=== PATIENT | female | born 1940 | race Caucasian/White ===

== ENCOUNTER 2017-12-22 07:54 | Day surgery (SDC) | payer MEDICARE, BC ==
[2017-12-22] MEDS ORDERED: fentaNYL 100 MCG/2 ML SDV ONE (08:24)
[2017-12-22] MEDS ORDERED: Midazolam 1 MG/ML 2 ML SDV ONE (08:24)
[2017-12-22] MEDS ORDERED: Propofol 200 MG/20 ML SDV ONE ×2 (08:24→09:46)
[2017-12-22] MEDS ORDERED: Lactated Ringers 1,000 ML IV SCH (08:30)
--- NOTE | 2017-12-25 07:38 | OR ---
DATE OF PROCEDURE: 12/22/2017 PREOPERATIVE DIAGNOSIS: History of colon polyps. POSTOPERATIVE DIAGNOSES: Diverticulosis, four colon polyps. PROCEDURE PERFORMED: Colonoscopy to the cecum with snare cautery polypectomy of cecal and rectal polyps, biopsy resection of transverse colon and second rectal polyp. SURGEON: Vinod Galdamez MD. ANESTHESIA: IV anesthesia with monitored anesthesia care. INDICATION: This 77-year-old white female is here for a colonoscopy. She has a history of colon polyps. Her last colonoscopic exam was done three years ago. I counseled her for the procedure, including risks and alternatives, and she gave her informed consent to proceed. DESCRIPTION OF PROCEDURE: The patient was placed in the left lateral decubitus position. IV anesthesia was administered by the Anesthesia Service. Time-out was held. A rectal exam was performed which was unremarkable. The flexible video Olympus colonoscope was introduced through her anus, up her rectum, and out her colon all the way to the cecum. En route, in the transverse colon we saw a small polyp, which was removed with a few bites of the biopsy forceps. In the cecum, we saw a larger polyp. The snare was passed about its base, it was elevated up away from the bowel wall and amputated as electrocautery was applied. This polyp was aspirated up through the scope and captured in a polyp trap. The scope was then slowly withdrawn examining the mucosa throughout. No additional mucosal abnormalities were noted until we reached the left colon. Here and in the sigmoid colon we saw a few scattered diverticula. There was no bleeding or inflammation associated with any of them. In the rectum, we saw a fairly large polyp. The snare was passed about its base, it was elevated up away from the bowel wall and amputated as electrocautery was applied. This polyp was aspirated up on the end of the scope. The scope was removed with the polyp then retrieved from the end of the scope. We introduced the scope back in. There was some residual polyp present, which we removed with biopsy forceps. In the more distal rectum we saw another polyp. This was small and removed with the biopsy forceps. It was sent separately to the lab. The scope was retroflexed with the distal rectum appeared unremarkable. The scope was straightened and removed. She tolerated the procedure well. Vinod Galdamez MD /[id number] CHANDLER
== END 2017-12-22 11:20 | disposition home or self-care (01) ==
LOC: JP.SDS 07:54
PROVIDERS: ATTEND Surgery
DX: Z12.11 Encounter for screening for malignant neoplasm of colon (principal); D12.3 Benign neoplasm of transverse colon; D12.0 Benign neoplasm of cecum; D12.8 Benign neoplasm of rectum; K57.30 Diverticulosis of large intestine without perforation or abscess without bleeding; I12.9 Hypertensive chronic kidney disease with stage 1 through stage 4 chronic kidney disease, or unspecified chronic kidney disease; E11.22 Type 2 diabetes mellitus with diabetic chronic kidney disease; N18.4 Chronic kidney disease, stage 4 (severe); E66.9 Obesity, unspecified; E78.5 Hyperlipidemia, unspecified; Z86.010 Personal history of colon polyps; Z88.8 Allergy status to other drugs, medicaments and biological substances
CPT/HCPCS: 45380; 45385; J2250; J2704; J3010; J7120; 88305

== ENCOUNTER 2019-02-10 08:38 | Emergency (ER) | payer MEDICARE ==
--- NOTE | 2019-02-10 09:27 | EDM.PDOC ---
ED HPI GENERAL MEDICAL PROBLEM - General Chief Complaint: Lower Extremity Injury/Pain Stated Complaint: INJURED LEFT LEG MONDAY Time Seen by Provider: 02/10/19 09:27 Source of Information: Reports: Patient History Limitations: Reports: No Limitations - History of Present Illness INITIAL COMMENTS - FREE TEXT/NARRATIVE: pt was helping asomeone up the stairs 2 or 3 days ago and she twisted her foot. She has a pes planus deformity. She had a boot on . The first few days she did not have alot of pain. She went to get up this am and her pain was so bad thar she could not bear weight on it. She has slight swelling. Onset: Other ( The pain got bad today. ) Duration: Hour(s): Location: Reports: Lower Extremity, Left, Other ( the pain is mainly on the bottom of the foot. ) Associated Symptoms: Reports: No Other Symptoms - Related Data Allergies Allergy/AdvReac Type Severity Reaction Status Date / Time Ztndyim-Sfd-Gbp Reductase Allergy Muscle Verified 02/10/19 09:02 Inhibitor Aches Home Meds: Home Meds Allopurinol [Zyloprim] 100 mg PO DAILY 12/20/17 [History] Furosemide [Lasix] 20 mg PO DAILY 12/20/17 [History] Lisinopril 20 mg PO BID 12/20/17 [History] Sodium Bicarbonate 650 mg PO BID 12/20/17 [History] glipiZIDE [Glucotrol] 2.5 mg PO DAILY 12/20/17 [History] Past Medical History HEENT History: Reports: Cataract, Hard of Hearing, Other (See Below) Other HEENT History: wears glasses Cardiovascular History: Reports: High Cholesterol, Hypertension Gastrointestinal History: Reports: Colon Polyp Genitourinary History: Reports: Chronic Renal Insuffiency URGENT CARE NURSE PRACTITIONER History: Reports: Musculoskeletal History: Reports: Arthritis, Other (See Below) Other Musculoskeletal History: left ankle "turning in" - defect - wears brace Endocrine/Metabolic History: Reports: Diabetes, Type II - Infectious Disease History Infectious Disease History: Reports: Chicken Pox, Measles - Past Surgical History HEENT Surgical History: Reports: Cataract Surgery GI Surgical History: Reports: Cholecystectomy, Colonoscopy Female Surgical History: Reports: Hysterectomy, Oophorectomy, Salpingo- Oophorectomy Social & Family History - Family History Oncologic: Reports: Colon - Tobacco Use Smoking Status *Q: Never Smoker - Caffeine Use Caffeine Use: Reports: None Review of Systems - Review of Systems Review Of Systems: See Below Constitutional: Reports: No Symptoms Eyes: Reports: No Symptoms Ears: Reports: No Symptoms Nose: Reports: No Symptoms Mouth/Throat: Reports: No Symptoms Respiratory: Reports: No Symptoms Cardiovascular: Reports: No Symptoms GI/Abdominal: Reports: No Symptoms Genitourinary: Reports: No Symptoms Musculoskeletal: Reports: Other (pain in the bottom of the left foot. There is mno open lesions. ) Skin: Reports: No Symptoms ED EXAM, GENERAL - Physical Exam Exam: See Below Free Text/Narrative:: pt arrived after twisting his left foot when she was helping someone the stairs. She is having severe pain in the bottom of the left foot. Exam Limited By: No Limitations General Appearance: Alert, Anxious, Moderate Distress Ears: Normal TMs Nose: Normal Inspection Throat/Mouth: Normal Inspection Head: Atraumatic Neck: Normal Inspection Extremities: Other (left foot has a pes planus deformity. She normally wears a boot and is most comfortable in that. She is very tender in the bottom of the foot. She is having difficulty bearing weight on the foot. She is having pain in the calf of the leg. ) Course - Vital Signs Last Recorded V/S: Last Vital Signs Temp 36.3 C 02/10/19 09:06 Pulse 82 02/10/19 09:06 Resp 20 02/10/19 09:06 BP 186/78 H 02/10/19 09:06 Pulse Ox 96 02/10/19 09:06 - Orders/Labs/Meds Orders: Active Orders 24 hr Category Date Time Status VL Duplex Lwr Ext Veins Ltd Lt [US] Stat Exams 02/10/19 10:51 Ordered - Re-Assessments/Exams Free Text/Narrative Re-Assessment/Exam: 02/10/19 12:17 xfrays of the foot and ankle were obtained which showed degenerative changes and a pes planus deformity. No fractures were seen, She had a Us of her left leg which did not show clots. She does have a bakers cyst. Departure - Departure Time of Disposition: 12:18 Disposition: Home, Self-Care 01 Condition: Fair Clinical Impression: Pes planus of right foot, Sprain of right foot - Discharge Information Referrals: James,Juana, PA [Primary Care Provider] - Forms: ED Department Discharge Care Plan Goals: soak foot in warm water bid, naprosyn 500mg bid for next 3-4 days, norco 5/ 325 q6h prn for pain#8 appt with Minnie Ramirez end of the wek. If on going pain may need a ortho consult. - My Orders Last 24 Hours: My Active Orders 02/10/19 10:51 VL Duplex Lwr Ext Veins Ltd Lt [US] Stat - Assessment/Plan Last 24 Hours: My Active Orders 02/10/19 10:51 VL Duplex Lwr Ext Veins Ltd Lt [US] Stat
--- NOTE | 2019-02-10 10:14 | CRLCR ---
Indication: Pain bottom of foot. Technique: Three views of the left foot were obtained. Comparison: None Findings: Degenerative changes of the left foot are identified. Osteopenia is identified. Pes planus is present. Impression: Degenerative change. Pes planus. Dictated by Kayla Turcios MD @ Feb 10 2019 10:12AM Signed by Dr. Kayla Turcios @ Feb 10 2019 10:13AM
--- NOTE | 2019-02-10 10:14 | CRLCR ---
Indication: Pain on in about a month left foot. Technique: Three views of the left ankle were obtained. Comparison: None Findings: The ankle mortise is intact. Talar dome is intact. Pes planus is identified. Extensive vascular calcifications are identified. No acute fracture subluxation is identified. Impression: Pes planus. Degenerative change. Dictated by Kayla Turcios MD @ Feb 10 2019 10:11AM Signed by Dr. Kayla Turcios @ Feb 10 2019 10:12AM
[2019-02-10] MEDS ORDERED: Acetaminophen/HYDROcodone 325-5 MG Tab PO ONE (12:19)
--- NOTE | 2019-02-10 12:36 | CRLUS ---
INDICATION: Left lower extremity pain and swelling. TECHNIQUE: Ultrasound venous duplex lower left extremity. Compression venous exam was performed using sandhu-scale, color Doppler, and spectral Doppler analysis. COMPARISON: None. FINDINGS: Sonographic imaging demonstrates the left common femoral, deep femoral, superficial femoral, popliteal, posterior tibial and greater saphenous and the contralateral right common femoral veins to be fully compressible with normal color Doppler blood flow. A left popliteal fossa fluid collection measures 4.9 x 3.6 x 1.9 centimeters and is compatible with a Aden`s cyst. IMPRESSION: 1. No left lower extremity deep or superficial venous thrombosis. 2. Left lower extremity Aden`s cyst as discussed above. Dictated by Clemente Laughlin MD @ Feb 10 2019 12:32PM Signed by Dr. Clemente Laughlin @ Feb 10 2019 12:34PM
== END 2019-02-10 12:39 | disposition home or self-care (01) ==
LOC: JP.ED 08:38
DX: S93.602A Unspecified sprain of left foot, initial encounter (principal); M21.42 Flat foot [pes planus] (acquired), left foot; E78.00 Pure hypercholesterolemia, unspecified; I12.9 Hypertensive chronic kidney disease with stage 1 through stage 4 chronic kidney disease, or unspecified chronic kidney disease; N18.9 Chronic kidney disease, unspecified; E11.22 Type 2 diabetes mellitus with diabetic chronic kidney disease; Z88.8 Allergy status to other drugs, medicaments and biological substances; Z79.899 Other long term (current) drug therapy; Z79.84 Long term (current) use of oral hypoglycemic drugs; X50.1XXA Overexertion from prolonged static or awkward postures, initial encounter
CPT/HCPCS: 73610; 73630; 93971; 99284; A9270; 99283

== ENCOUNTER 2020-11-23 06:22 | Day surgery (SDC) | payer MEDICARE ==
[2020-11-23] MEDS ORDERED: fentaNYL 100 MCG/2 ML SDV ONE (07:16)
[2020-11-23] MEDS ORDERED: Propofol 200 MG/20 ML SDV ONE ×2 (07:16→08:04)
[2020-11-23] MEDS ORDERED: Sodium Chloride 0.9% 1,000 ML IV SCH (07:30)
--- NOTE | 2020-11-23 15:52 | OR ---
DATE OF PROCEDURE: 11/23/2020 SURGEON: Jos Quevedo MD PROCEDURE: Colonoscopy. FINDINGS: 1. Ascending colon polyp, approximately 8 mm, completely removed using hot snare wire device in conjunction with direct submucosal injection ([id number]). 2. Ascending colon polyp, approximately 8 mm, completely removed using hot snare wire device. 3. Ascending colon polyp #3, completely removed using cold biopsy forceps. 4. Ascending colon polyp #4, 5 mm, completely removed using cold biopsy forceps. 5. Transverse colon polyp, approximately 5 mm, completely removed using cold biopsy forceps. 6. Sigmoid colon polyp, approximately 8 mm, completely removed using hot snare wire device. 7. Diverticulosis, moderate in a classic distribution in the sigmoid colon. COMPLICATIONS: None. POT MAKER: None. PREOPERATIVE DIAGNOSIS: Screening colonoscopy. POSTOPERATIVE DIAGNOSIS: Screening colonoscopy. RISKS: Risks, benefits, alternatives, and limitations including but not limited to infection, bleeding, perforation, false positives, and false negatives were explained to patient and she wished to proceed. PROCEDURE IN DETAIL: The patient was placed in left lateral decubitus position. Scope was introduced and advanced atraumatically to the ileocecal valve. A photo was taken. The scope was brought back to the colon. The aforementioned polyps were all identified and completely removed as described above. No abnormal bleeding was noted after removal. With respect to the first polyp, this was submucosally injected using normal saline and then subsequently removed as described above. The diverticulosis was described as [id number] in a classic distribution with most of this noted in the sigmoid colon. No abnormalities on retroflexion. Prep was acceptable with approximately 90% luminal surface could be seen. Greater than 8 minutes was spent removing the scope. The patient tolerated the procedure well. Jos Quevedo MD /[id number]
== END 2020-11-23 09:20 | disposition home or self-care (01) ==
LOC: JP.SDS 06:22
PROVIDERS: ATTEND Surgery
DX: Z12.11 Encounter for screening for malignant neoplasm of colon (principal); D12.2 Benign neoplasm of ascending colon; D12.3 Benign neoplasm of transverse colon; D12.5 Benign neoplasm of sigmoid colon; K57.30 Diverticulosis of large intestine without perforation or abscess without bleeding; Z88.8 Allergy status to other drugs, medicaments and biological substances
CPT/HCPCS: 88305; J2704; J3010; J7030

== ENCOUNTER 2020-12-05 14:04 | Emergency (ER) | payer MEDICARE ==
--- NOTE | 2020-12-05 14:37 | EDM.PDOC ---
ED HPI GENERAL MEDICAL PROBLEM - General Chief Complaint: Lower Extremity Injury/Pain Stated Complaint: FALL VIA NORTH Time Seen by Provider: 12/05/20 14:25 Source of Information: Reports: Patient, Family History Limitations: Reports: No Limitations - History of Present Illness INITIAL COMMENTS - FREE TEXT/NARRATIVE: 80-year-old female who stood up from her couch at home, was leaning forward to adjust some plastic lynn when she fell forward hard on her left knee. She has significant pain, swelling, and bruising around the left knee including a tiny scrape or puncture wound that had bled. She is unable to move the knee without significant pain, certainly cannot weight-bear. No other injury. Onset: Sudden Duration: Hour(s): (Within the last hour) Location: Reports: Lower Extremity, Left Quality: Reports: Sharp, Stabbing Worsens with: Reports: Other (Attempted to weight-bear which was impossible), Movement - Related Data Allergies Allergy/AdvReac Type Severity Reaction Status Date / Time Ebyxiev-Kup-Nov Reductase AdvReac Muscle Verified 12/05/20 14:11 Inhibitor Aches Home Meds: Home Meds Sodium Bicarbonate 650 mg PO BID 12/20/17 [History] allopurinoL [Zyloprim] 100 mg PO DAILY 12/20/17 [History] glipiZIDE [Glucotrol] 2.5 mg PO DAILY 12/20/17 [History] amLODIPine Besylate [Amlodipine Besylate] 2.5 mg PO DAILY 11/19/20 [History] Past Medical History HEENT History: Reports: Cataract, Hard of Hearing, Impaired Vision, Other (See Below) Other HEENT History: wears glasses Cardiovascular History: Reports: High Cholesterol, Hypertension Respiratory History: Reports: None Gastrointestinal History: Reports: Colon Polyp Genitourinary History: Reports: Chronic Renal Insuffiency INTERVENTIONAL PAIN PHYSICIAN History: Reports: Musculoskeletal History: Reports: Arthritis, Other (See Below) Other Musculoskeletal History: left ankle "turning in" - defect - wears brace Neurological History: Reports: None Psychiatric History: Reports: None Endocrine/Metabolic History: Reports: Diabetes, Type II Hematologic History: Reports: None Immunologic History: Reports: None Oncologic (Cancer) History: Reports: None Dermatologic History: Reports: None - Infectious Disease History Infectious Disease History: Reports: Chicken Pox, Measles - Past Surgical History Head Surgeries/Procedures: Reports: None HEENT Surgical History: Reports: Cataract Surgery Cardiovascular Surgical History: Reports: None Respiratory Surgical History: Reports: None GI Surgical History: Reports: Cholecystectomy, Colonoscopy, Hernia Repair/Other Female Surgical History: Reports: Hysterectomy, Oophorectomy, Salpingo- Oophorectomy Endocrine Surgical History: Reports: None Musculoskeletal Surgical History: Reports: None Oncologic Surgical History: Reports: None Dermatological Surgical History: Reports: None Social & Family History - Family History Family Medical History: No Pertinent Family History Cardiac: Reports: PVD/COD Oncologic: Reports: Colon - Tobacco Use Tobacco Use Status *Q: Never Tobacco User Second Hand Smoke Exposure: No - Caffeine Use Caffeine Use: Reports: None - Recreational Drug Use Recreational Drug Use: No Review of Systems - Review of Systems Review Of Systems: See Below Constitutional: Denies: Fever Respiratory: Denies: Shortness of Breath Cardiovascular: Denies: Chest Pain Musculoskeletal: Reports: Leg Pain (Severe left leg pain) Skin: Reports: Bruising (Significant bruising has developed around the anterior aspect of the left knee) Neurological: Denies: Paresthesia Psychiatric: Reports: No Symptoms ED EXAM, GENERAL - Physical Exam Exam: See Below Exam Limited By: No Limitations General Appearance: Alert, No Apparent Distress (Uncomfortable but not in any acute distress) Respiratory/Chest: No Respiratory Distress, Lungs Clear Cardiovascular: No: Regular Rate, Rhythm GI/Abdominal: Non-Tender Extremities: Other (Left leg has a chronic deformity of the ankle and foot, but new diffuse swelling around the proximal left knee, significant tenderness to palpation of the distal femur and knee, and some diffuse bruising and a small puncture wound with bleeding) Neurological: Alert, Oriented Course - Vital Signs Last Recorded V/S: Last Vital Signs Temp 94.1 F L 12/05/20 14:20 Pulse 87 12/05/20 14:20 Resp 16 12/05/20 14:20 BP 151/73 H 12/05/20 14:20 Pulse Ox 96 12/05/20 14:20 - Orders/Labs/Meds Orders: Active Orders 24 hr Category Date Time Status Knee 1V or 2V Lt [CR] Stat Exams 12/05/20 14:50 Taken Meds: Medications Discontinued Medications Generic Name Dose Route Start Last Admin Trade Name Freq PRN Reason Stop Dose Admin Cefazolin Sodium/Dextrose 1 gm 50 mls @ 100 mls/hr 12/05/20 15:30 12/05/20 15:19 / Premix IV 12/05/20 15:59 100 mls/hr ONETIME ONE Administration - Re-Assessments/Exams Free Text/Narrative Re-Assessment/Exam: 12/05/20 14:37 A left knee x-ray with the distal femur was obtained. 12/05/20 16:38 X-ray confirmed a displaced comminuted distal femur fracture with a sharp fragment that likely walker the skin resulting in an open fracture. 1 g of Ancef was given IV, orthopedics was consulted and Dr. Garay of [place] accepted the patient for transfer. Prior to transfer, her femur fracture was reduced and a knee immobilizer was placed, patient did not require anesthesia. It felt much better. Departure - Departure Time of Disposition: 16:25 Disposition: DC/Tfer to Other Clinical Impression: Fracture of distal end of left femur Qualifiers: Encounter type: initial encounter Fracture type: open Fracture morphology: unspecified fracture morphology - Discharge Information Referrals: PCP,None [Primary Care Provider] - Forms: ED Department Discharge Care Plan Goals: Patient will be transferred by EMS to [facility], for further evaluation and treatment by orthopedics for a distal open femur fracture. Sepsis Event Note (ED) - Evaluation Sepsis Screening Result: No Definite Risk - My Orders Last 24 Hours: My Active Orders 12/05/20 14:50 Knee 1V or 2V Lt [CR] Stat - Assessment/Plan Last 24 Hours: My Active Orders 12/05/20 14:50 Knee 1V or 2V Lt [CR] Stat
[2020-12-05] MEDS ORDERED: ceFAZolin 1 GM in Sodium Chloride 0.9% 50 ML IV ONE (15:03)
[2020-12-05] MEDS ORDERED: ceFAZolin 1 GM in Premix Bag 1 BAG IV ONE (15:30)
--- NOTE | 2020-12-08 09:32 | CR ---
Knee 1V or 2V Lt CLINICAL HISTORY: Injury FINDINGS: There is a comminuted displaced fracture of the distal femoral metaphysis. Impression: Limited study Comminuted displaced fracture distal femur
== END 2020-12-05 16:46 | disposition other institution (70) ==
LOC: JP.ED 14:04
DX: S72.492B Other fracture of lower end of left femur, initial encounter for open fracture type I or II (principal); I12.9 Hypertensive chronic kidney disease with stage 1 through stage 4 chronic kidney disease, or unspecified chronic kidney disease; E11.22 Type 2 diabetes mellitus with diabetic chronic kidney disease; N18.9 Chronic kidney disease, unspecified; Z88.8 Allergy status to other drugs, medicaments and biological substances; W18.09XA Striking against other object with subsequent fall, initial encounter
CPT/HCPCS: 73560; 96365; 99283; J0690

== ENCOUNTER 2021-03-23 06:57 | Day surgery (SDC) | payer MEDICARE ==
[2021-03-23] MEDS ORDERED: fentaNYL 100 MCG/2 ML SDV ONE (07:24)
[2021-03-23] MEDS ORDERED: Propofol 200 MG/20 ML SDV ONE (07:24)
[2021-03-23] MEDS ORDERED: Sodium Chloride 0.9% 1,000 ML IV SCH (07:30)
--- NOTE | 2021-03-23 13:53 | OR ---
DATE OF PROCEDURE: 03/23/2021 SURGEON: Jos Quevedo MD PROCEDURE: Colonoscopy. FINDINGS: Ascending colon lesion most consistent with history of adenocarcinoma, biopsy of the area, tattooed with Nan Ink. Biopsied again using cold biopsy forceps for verification. COMPLICATION: None. PSYCHOLOGICAL OPERATIONS OFFICER: None. ANESTHESIA: MAC. PREOPERATIVE DIAGNOSIS: History of adenocarcinoma. POSTOPERATIVE DIAGNOSIS: History of adenocarcinoma. INDICATIONS: A 80-year-old female who had a colonoscopy, was diagnosed with adenocarcinoma and subsequently fell and broke her femur and did not follow up. Due to this, she was re- contacted by Surgical Services and was scheduled for review colonoscopy. PROCEDURE IN DETAIL: The patient was placed in left lateral decubitus position. Digital rectal exam was performed and advanced without abnormality. Scope was introduced and advanced atraumatically to the ileocecal valve. Approximately 5 cm in the ascending colon, the most likely mass was identified. This was tattooed distally and submucosally using Nan Ink. This was biopsied multiple times using cold biopsy forceps. The scope was brought back to the remainder. There were 2 small polypoid remnants and diverticulosis was noted. However, this is most likely the area of concern. The patient tolerated the procedure well. Jos Quevedo MD /[id number]
== END 2021-03-23 09:40 | disposition home or self-care (01) ==
LOC: JP.SDS 06:57
PROVIDERS: ATTEND Surgery
DX: C18.2 Malignant neoplasm of ascending colon (principal); K57.30 Diverticulosis of large intestine without perforation or abscess without bleeding; I12.9 Hypertensive chronic kidney disease with stage 1 through stage 4 chronic kidney disease, or unspecified chronic kidney disease; N18.9 Chronic kidney disease, unspecified; E11.22 Type 2 diabetes mellitus with diabetic chronic kidney disease; Z88.8 Allergy status to other drugs, medicaments and biological substances
CPT/HCPCS: 88305; J2704; J3010; J7030

== ENCOUNTER 2021-05-07 05:31 | Inpatient (IN) | payer MEDICARE ==
[2021-05-07] MEDS ORDERED: Sodium Chloride 0.9% 1,000 ML IV SCH ×2 (07:00→12:15)
[2021-05-07] MEDS ORDERED: Glycopyrrolate 0.2 MG/ML 5 ML MDV ONE (07:19)
[2021-05-07] MEDS ORDERED: fentaNYL 250 MCG/5 ML SDV ONE (07:19)
[2021-05-07] MEDS ORDERED: Dexamethasone 4 MG/ML SDV ONE (07:19)
[2021-05-07] MEDS ORDERED: Propofol 200 MG/20 ML SDV ONE (07:19)
[2021-05-07] MEDS ORDERED: Rocuronium 50 MG/5 ML Vial ONE (07:19)
[2021-05-07] MEDS ORDERED: Ondansetron 4 MG/2 ML SDV ONE ×2 (07:19→10:30)
[2021-05-07] MEDS ORDERED: Neostigmine Methylsulfate 1 MG/ML 5 ML Syringe ONE (07:19)
[2021-05-07] MEDS ORDERED: Succinylcholine 200 MG/10 ML MDV ONE (07:19)
[2021-05-07] MEDS ORDERED: Sodium Chloride 0.9% 10 ML ONE ×3 (07:22→08:45)
[2021-05-07] MEDS ORDERED: metroNIDAZOLE/Normal Saline 500 MG in Premix Bag 1 BAG IV ONE (07:30)
[2021-05-07] MEDS ORDERED: ceFAZolin 2 GM in Premix Bag 1 BAG IV ONE (07:30)
[2021-05-07] MEDS ORDERED: Naloxone 0.4 MG/ML SDV IVPUSH PRN (07:45)
[2021-05-07] MEDS ORDERED: ePHEDrine 50 MG/ML SDV ONE ×2 (08:22→08:44)
[2021-05-07] MEDS ORDERED: Phenylephrine 1% 10 MG/ML SDV ONE (08:45)
[2021-05-07] MEDS ORDERED: Lactated Ringers 1,000 ML ONE (08:51)
[2021-05-07] MEDS ORDERED: Naloxone 0.4 MG/ML SDV IV PRN (11:00)
[2021-05-07] MEDS ORDERED: diphenhydrAMINE 50 MG/ML SDV IVPUSH PRN ×2 (11:00)
[2021-05-07] MEDS ORDERED: ePHEDrine 50 MG/ML SDV IV PRN (11:00)
[2021-05-07] MEDS ORDERED: Sodium Chloride 0.9% 1,000 ML with Naloxone 0.4 MG IV SCH ×2 (11:45)
[2021-05-07] MEDS ORDERED: hydrOXYzine HCL 100 MG/2 ML SDV IM PRN (12:12)
[2021-05-07] MEDS ORDERED: Albuterol/Ipratropium 3.0-0.5 MG/3 ML Neb Soln NEB PRN (12:12)
[2021-05-07] MEDS ORDERED: Acetaminophen/oxyCODONE 325-5 MG Tab PO PRN (12:12)
[2021-05-07] MEDS ORDERED: Benzocaine/Cetylpyridinium/Menthol Lozenge MUCMEM PRN (12:12)
[2021-05-07] MEDS ORDERED: fentaNYL 100 MCG/2 ML SDV IVPUSH PRN (12:12)
[2021-05-07] MEDS ORDERED: Metoclopramide 10 MG/2 ML SDV IV PRN (12:12)
[2021-05-07] MEDS ORDERED: ceFAZolin 1 GM in Sodium Chloride 0.9% 50 ML IV SCH (12:15)
[2021-05-07] MEDS ORDERED: Glucose Gel 15 GM in 37.5 GM Tube PO PRN (13:52)
[2021-05-07] MEDS ORDERED: 50% Dextrose in Water 50 ML Syringe IV PRN (13:52)
[2021-05-07] MEDS ORDERED: Ketorolac 30 MG/ML SDV IVPUSH SCH (14:00)
--- NOTE | 2021-05-07 15:04 | OR ---
DATE OF PROCEDURE: 05/07/2021 SURGEON: Jos Quevedo MD PROCEDURE PERFORMED: 1. Open right hemicolectomy. 2. Mobilization of splenic flexure. SPECIMENS: 1. Right colon. 2. Portion of transverse colon with single stitch in proximal location. 3. Additional omentum. COMPLICATIONS: None. GENERAL STORE MANAGER: None. PREOPERATIVE DIAGNOSIS: Adenocarcinoma of the colon. POSTOPERATIVE DIAGNOSIS: Adenocarcinoma of the colon. ANESTHESIA: Epidural. ESTIMATED BLOOS LOSS: Approximately 200 mL. RISKS: Risks, benefits, alternatives, and limitations including, but not limited to infection, bleeding, abscess formation, leaks, requirement for ostomy. We also discussed general surgical risks including DVT, heart attack, stroke, , and other risks not listed here. We also discussed septic shock, my experience with the procedure, and other risks not listed here. PROCEDURE IN DETAIL: The patient was placed in the supine position. A midline incision was made. This was supraumbilical in nature. Jamila clamps were used to elevate the abdomen. The abdomen entered bluntly after moving down with a plasma blade to the peritoneum. The incision was opened approximately 5 cm larger than this. The right colon was identified. This mobilization was performed. This was started in the right lower quadrant by the avascular line of Toldt. This was then carried up and mobilized further into the right colon. The hepatocolic attachments were then also . The omentum was transected, the transverse colon. The right colon was also mobilized off the spleen. The omentum, in entering the lesser sac, was transected using Harmonic scalpel. The ileum was then transected after evaluating the vascular aspect using a jimenez load stapler. This procedure to be performed is the classic right hemicolectomy, sacrificing the right branch of the middle colic artery and keeping the remaining vascular structure. These vascular structures were identified with a combination of palpation, transillumination, and intraoperative Doppler. Good blood supply was identified then via this technique. Once the colon the jimenez load vascular marlo were used to move along the mesentery in a wedge-type fashion. Once this was performed, an additional aspect of the transverse colon was also resected for use of anastomosis and to ensure a proper margin. This single stitch was placed in the proximal margin of this. A [id number] functional end-to-end anastomosis was then performed. This was performed by creating a defect in the antimesenteric side. A 60 and subsequent 47 mm staplers were used to make this diau-wu-lhad anastomosis. Allis clamps were then used to approximate the defect, and then the remaining colon defect was closed. An anti-slip stitch had also been placed. The mesenteric defect was then closed with 3-0 Vicryl in a running fashion. This was all irrigated thoroughly. Tisseel was placed. The omentum was oversewn across the anastomosis. This was placed back in the abdomen. The liver was inspected without abnormality, although there were dense adhesions associated with this precluding complete examination of the liver. The fascia was closed with #1 Vicryl in a running suture. Subcutaneous tissue was reapproximated with 3-0 Vicryl, and the skin was closed with staplers. The patient tolerated the procedure well. Jos Quevedo MD /[id number]
[2021-05-07] MEDS: fentaNYL 2,500 MCG in Sodium Chloride 0.9% 200 ML EPIDUR SCH (15:07)
[2021-05-07] MEDS: ceFAZolin 1 GM in Premix Bag 1 BAG IV SCH ×2 (16:16→23:20)
[2021-05-07] MEDS: Insulin Lispro 100 Unit/ML 3 ML KwikPen SUBCUT SCH ×2 (16:19→21:12)
--- NOTE | 2021-05-07 16:58 | PCM.CONS ---
H&P History of Present Illness - General Date of Service: 05/07/21 Admit Problem/Dx: Admission Diagnosis/Problem Admission Diagnosis/Problem Adenocarcinoma Source of Information: Patient, Provider, RN Notes Reviewed History Limitations: Reports: No Limitations - History of Present Illness Initial Comments - Free Text/Narative: Ms. Mulligan-is a 80 year-old woman who I been asked to see by Dr. Quevedo for assistance in medical management during her postoperative course. She underwent hemicolectomy for colon cancer earlier today by Dr. Quevedo. She does have a known history of type 2 diabetes mellitus, chronic kidney disease, hypertension, and hyper cholesterolemia. She has done well in the immediate postoperative period and denies current nausea, chest pain, or shortness of breath. She reports that her current pain control is very good. - Related Data Allergies/Adverse Reactions: Allergies Allergy/AdvReac Type Severity Reaction Status Date / Time [id number] Reductase AdvReac Muscle Verified 05/07/21 06:12 Inhibitor Aches [[id number] Reductase Inhibitor] Home Medications: Home Meds Sodium Bicarbonate 650 mg PO BID 12/20/17 [History] allopurinoL [Zyloprim] 100 mg PO DAILY 12/20/17 [History] glipiZIDE [Glucotrol] 2.5 mg PO DAILY 12/20/17 [History] amLODIPine Besylate [Amlodipine Besylate] 2.5 mg PO DAILY 11/19/20 [History] Acetaminophen [Tylenol Arthritis] 650 mg PO BID PRN 03/18/21 [History] Calcium Carb/Vit D3/Minerals [Calcium 600+D Plus Minerals] 1 each PO BID 03/18/21 [History] Cyanocobalamin (Vitamin B-12) [B-12] 1,000 mcg PO DAILY 03/18/21 [History] Furosemide [Lasix] 20 mg PO DAILY 03/18/21 [History] Magnesium Amino Acid Chelate [Magnesium] 100 mg PO DAILY 05/04/21 [History] Neomycin [Neomycin Sulfate] 500 mg PO BID 05/04/21 [History] Past Medical History HEENT History: Reports: Cataract, Hard of Hearing, Impaired Vision, Other (See Below) Other HEENT History: wears glasses Cardiovascular History: Reports: High Cholesterol, Hypertension Respiratory History: Reports: None Gastrointestinal History: Reports: Colon Polyp Genitourinary History: Reports: Chronic Renal Insuffiency [employer] History: Reports: Musculoskeletal History: Reports: Arthritis, Fracture, Gout, Other (See Below) Other Musculoskeletal History: left ankle "turning in" - defect - wears brace Neurological History: Reports: None Psychiatric History: Reports: None Endocrine/Metabolic History: Reports: Diabetes, Type II Other Endocrine/Metabolic History: BS this AM 106 Hematologic History: Reports: Blood Transfusion(s) Immunologic History: Reports: None Oncologic (Cancer) History: Reports: Colon Dermatologic History: Reports: None - Infectious Disease History Infectious Disease History: Reports: Chicken Pox, Measles - Past Surgical History Head Surgeries/Procedures: Reports: None HEENT Surgical History: Reports: Cataract Surgery Cardiovascular Surgical History: Reports: None Respiratory Surgical History: Reports: None GI Surgical History: Reports: Cholecystectomy, Colonoscopy, Hernia Repair/Other Female Surgical History: Reports: Hysterectomy, Oophorectomy, Salpingo- Oophorectomy Endocrine Surgical History: Reports: None Musculoskeletal Surgical History: Reports: Other (See Below) Other Musculoskeletal Surgeries/Procedures:: plate and screws in left femur after fracture November 2020 Oncologic Surgical History: Reports: None Dermatological Surgical History: Reports: None Social & Family History - Family History Family Medical History: No Pertinent Family History Cardiac: Reports: PVD/COD Oncologic: Reports: Colon - Tobacco Use Tobacco Use Status *Q: Never Tobacco User - Caffeine Use Caffeine Use: Reports: Coffee - Alcohol Use Days Per Week of Alcohol Use: 0 - Recreational Drug Use Recreational Drug Use: No H&P Review of Systems - Review of Systems: Review Of Systems: See Below General: Reports: No Symptoms Pulmonary: Reports: No Symptoms Cardiovascular: Reports: No Symptoms Gastrointestinal: Reports: No Symptoms Genitourinary: Reports: No Symptoms Musculoskeletal: Reports: No Symptoms Skin: Reports: No Symptoms Psychiatric: Reports: No Symptoms Neurological: Reports: No Symptoms Exam - Exam Exam: See Below - Vital Signs Vital Signs: Last Vital Signs Temp 98.1 F 05/07/21 16:00 Pulse 82 05/07/21 06:02 Resp 14 05/07/21 16:00 BP 121/57 L 05/07/21 16:00 Pulse Ox 95 05/07/21 16:00 Weight: 172 lb - Exam Quality Assessment: DVT Prophylaxis General: Alert, Oriented, Cooperative, Mild Distress Neck: Supple, Trachea Midline, +2 Carotid Pulse wo Bruit Lungs: Clear to Auscultation, Normal Respiratory Effort Cardiovascular: Regular Rate, Regular Rhythm, Normal S1, Normal S2. No: Sy stolic Murmur, Diastolic Murmur GI/Abdominal Exam: Soft, No Organomegaly, Tender. No: Distended, Guarding, Rigid, Rebound Skin: Warm, Dry Neuro Extensive - Mental Status: Alert, Oriented x3, Normal Mood/Affect, Normal Cognition, Memory Intact - Patient Data Lab Results Last 24 hrs: Laboratory Results - last 24 hr 05/07/21 05/07/21 05/07/21 Range/Units 05:45 05:45 16:14 WBC 5.6 (4.5-11.0) K/uL RBC 3.46 (3.30-5.50) M/uL Hgb 10.5 L (12.0-15.0) g/dL Hct 32.6 L (36.0-48.0) % MCV 94 (80-98) fL MCH 30 (27-31) pg MCHC 32 (32-36) % Plt Count 338 (150-400) K/uL POC Glucose 238 H (74-106) mg/dL Blood Type O NEGATIVE Gel Antibody Screen Negative Crossmatch See Detail Result Diagrams: 05/07/21 05:45 Sepsis Event Note - Evaluation Sepsis Screening Result: No Definite Risk - Focused Exam Vital Signs: Vital Signs Temp Pulse Resp BP Pulse Ox 05/07/21 16:00 98.1 F 14 121/57 L 95 05/07/21 14:00 14 122/57 L 93 L 05/07/21 13:00 12 124/58 L 95 05/07/21 12:30 12 139/62 92 L 05/07/21 12:00 97.4 F 12 130/60 92 L 05/07/21 11:48 12 151/67 H 92 L 05/07/21 11:30 14 162/75 H 93 L 05/07/21 11:15 14 148/63 H 96 05/07/21 11:00 12 141/61 H 95 05/07/21 10:48 97.2 F 12 144/64 H 94 L 05/07/21 06:02 97.0 F 82 16 151/78 H 94 L *Q Meaningful Use (ADM) - VTE Risk Assess *Q Each Risk Factor Represents 1 Point: Obesity ( BMI > 25 kg/m2) Total Score 1 Point Risk Factors: 1 Each Risk Factor Represents 2 Points: Malignancy (present or previous), Major surgery greater than 45 minutes Total Score 2 Point Risk Factors: 4 Each Risk Factor Represents 3 Points: Age 75 Years or Greater Total Score 3 Point Risk Factors: 3 Each Risk Factor Represents 5 Points: None Total Score 5 Point Risk Factors: 0 Venous Thromboembolism Risk Factor Score *Q: 8 Consult PN Assessment/Plan Procedures: Procedures BREAST TOMOSYNTHESIS BI (07/15/20) COLONOSCOPY AND BIOPSY (03/23/21) COLONOSCOPY SUBMUCOUS NJX (03/23/21) COLONOSCOPY W/LESION REMOVAL (11/23/20) COMP SCREEN MAMMOGRAM ADD-ON (07/16/15) EMERGENCY DEPT VISIT (12/05/20) EMERGENCY DEPT VISIT (02/10/19) EXTREMITY STUDY (02/10/19) SCR MAMMO BI INCL CAD (07/15/20) THER/PROPH/DIAG IV INF INIT (12/05/20) TISSUE EXAM BY PATHOLOGIST (03/23/21) US EXAM ABDO BACK WALL SABILLON (07/07/15) X-RAY EXAM OF ANKLE (02/10/19) X-RAY EXAM OF FOOT (02/10/19) X-RAY EXAM OF KNEE 1 OR 2 (12/05/20) Problem List Initiated/Reviewed/Updated: Yes My Orders Last 24 Hours: My Active Orders 05/07/21 13:52 Communication Order [RC] STAT Diabetes Education [RC] Click to Edit Notify Provider [RC] PRN Dextrose 50% in Water 50 ml IV ONETIME PRN Dextrose [Glutose 15] 15 gm PO ONETIME PRN 05/07/21 17:00 Insulin Lispro [HumaLOG] See Protocol SUBCUT QIDACANDBED 05/08/21 09:00 allopurinoL [Zyloprim] 100 mg PO DAILY amLODIPine [Norvasc] 2.5 mg PO DAILY Plan: ASSESSMENT AND RECOMMENDATIONS STATUS POST HEMICOLECTOMY FOR COLON CANCER-stable and doing well during the initial postoperative period -Postoperative care per Dr. Quevedo and Dr. Orlando TYPE 2 DIABETES MELLITUS -Hold oral hypo-glycemic therapy -4 times daily glucometers -Moderate dose sliding scale insulin HYPERTENSION -Continue outpatient medications CHRONIC KIDNEY DISEASE STAGE III -Closely monitor urine output and renal function -Hold furosemide Requesting Provider: RW Date Consult Requested: 05/07/21 Reason for Consult: Postoperative medical management Patient History Reviewed: Yes
[2021-05-07] MEDS ORDERED: Sodium Chloride 0.9% 250 ML IV ONE (20:14)
[2021-05-07] MEDS: Ketorolac 30 MG/ML SDV IVPUSH SCH (20:24)
[2021-05-07] MEDS ORDERED: Enoxaparin 40 MG/0.4 ML Syringe SUBCUT SCH (21:00)
[2021-05-07] MEDS: Sodium Chloride 0.9% 1,000 ML with Naloxone 0.4 MG IV SCH ×2 (22:54)
[2021-05-08] MEDS: Ketorolac 30 MG/ML SDV IVPUSH SCH ×2 (01:20→08:40)
[2021-05-08] MEDS ORDERED: Sodium Chloride 0.9% 250 ML IV ONE (01:21)
[2021-05-08] MEDS: fentaNYL 2,500 MCG in Sodium Chloride 0.9% 200 ML EPIDUR SCH (03:53)
[2021-05-08] MEDS: Sodium Chloride 0.9% 1,000 ML with Naloxone 0.4 MG IV SCH ×2 (07:49)
[2021-05-08] MEDS: Insulin Lispro 100 Unit/ML 3 ML KwikPen SUBCUT SCH ×4 (08:41→21:43)
[2021-05-08] MEDS ORDERED: glipiZIDE 5 MG Tab PO SCH (09:00)
[2021-05-08] MEDS: glipiZIDE 5 MG Tab PO SCH (09:21)
[2021-05-08] MEDS: Bisacodyl 5 MG Tab PO SCH ×2 (09:22→21:44)
[2021-05-08] MEDS: Acetaminophen 325 MG Tab PO SCH ×3 (09:22→23:04)
[2021-05-08] MEDS: Docusate Sodium 100 MG Cap PO SCH ×2 (09:22→21:44)
[2021-05-08] MEDS: amLODIPine 5 MG Tab PO SCH (09:22)
[2021-05-08] MEDS: Allopurinol 100 MG Tab PO SCH (09:24)
[2021-05-08] MEDS: LACTATED RINGERS IV SCH ×4 (13:13→22:47)
[2021-05-08] MEDS: NALOXONE IV SCH ×4 (13:13→22:47)
--- NOTE | 2021-05-08 16:50 | PCM.CONSN ---
- General Info Date of Service: 05/08/21 Subjective Update: Ms. Mulligan is more difficulty with confusion this morning, rate of her epidural has been decreased. She otherwise has remained stable with adequate urine output and no significant hypotension. Because of confusion she is unable to provide meaningful information concerning symptoms or review of systems. - Patient Data Vitals - Most Recent: Last Vital Signs Temp 98.2 F 05/08/21 16:00 Pulse 77 05/08/21 16:00 Resp 12 05/08/21 16:00 BP 119/56 L 05/08/21 16:00 Pulse Ox 95 05/08/21 16:00 Weight - Most Recent: 172 lb I&O - Last 24 Hours: Intake & Output 05/08/21 05/08/21 05/08/21 06:59 14:59 22:59 Intake Total 2164 1580 1226 Output Total 130 365 100 Balance 2034 1215 1126 Lab Results Last 24 Hours: Laboratory Results - last 24 hr 05/07/21 05/07/21 05/08/21 Range/Units 05:45 21:11 05:43 WBC 10.8 (4.5-11.0) K/uL RBC 2.86 L (3.30-5.50) M/uL Hgb 8.5 L D (12.0-15.0) g/dL Hct 26.9 L (36.0-48.0) % MCV 94 (80-98) fL MCH 30 (27-31) pg MCHC 32 (32-36) % Plt Count 308 (150-400) K/uL Neut % (Auto) 88.0 H (36-66) % Lymph % (Auto) 5.4 L (24-44) % [place] % (Auto) 6.6 H (2-6) % Eos % (Auto) 0.0 L (2-4) % Baso % (Auto) 0.0 (0-1) % Sodium (140-148) mmol/L Potassium (3.6-5.2) mmol/L Chloride (100-108) mmol/L Carbon Dioxide (21-32) mmol/L Anion Gap (5.0-14.0) mmol/L BUN (7-18) mg/dL Creatinine (0.6-1.0) mg/dL Est Cr Clr Drug Dosing mL/min Estimated GFR (MDRD) (>60) Glucose (74-106) mg/dL POC Glucose 223 H (74-106) mg/dL Calcium (8.5-10.1) mg/dL NT-Pro-B Natriuret Pep (5-450) pg/mL Blood Type O NEGATIVE Gel Antibody Screen Negative Crossmatch See Detail 05/08/21 05/08/21 05/08/21 Range/Units 05:43 07:44 08:39 WBC (4.5-11.0) K/uL RBC (3.30-5.50) M/uL Hgb (12.0-15.0) g/dL Hct (36.0-48.0) % MCV (80-98) fL MCH (27-31) pg MCHC (32-36) % Plt Count (150-400) K/uL Neut % (Auto) (36-66) % Lymph % (Auto) (24-44) % [place] % (Auto) (2-6) % Eos % (Auto) (2-4) % Baso % (Auto) (0-1) % Sodium 138 L (140-148) mmol/L Potassium 4.0 (3.6-5.2) mmol/L Chloride 104 (100-108) mmol/L Carbon Dioxide 21 (21-32) mmol/L Anion Gap 17.0 H (5.0-14.0) mmol/L BUN 38 H (7-18) mg/dL Creatinine 2.1 H (0.6-1.0) mg/dL Est Cr Clr Drug Dosing 16.66 mL/min Estimated GFR (MDRD) 23 L (>60) Glucose 176 H (74-106) mg/dL POC Glucose 142 H (74-106) mg/dL Calcium 7.8 L (8.5-10.1) mg/dL NT-Pro-B Natriuret Pep 694 H (5-450) pg/mL Blood Type Gel Antibody Screen Crossmatch 05/08/21 Range/Units 12:14 WBC (4.5-11.0) K/uL RBC (3.30-5.50) M/uL Hgb (12.0-15.0) g/dL Hct (36.0-48.0) % MCV (80-98) fL MCH (27-31) pg MCHC (32-36) % Plt Count (150-400) K/uL Neut % (Auto) (36-66) % Lymph % (Auto) (24-44) % [place] % (Auto) (2-6) % Eos % (Auto) (2-4) % Baso % (Auto) (0-1) % Sodium (140-148) mmol/L Potassium (3.6-5.2) mmol/L Chloride (100-108) mmol/L Carbon Dioxide (21-32) mmol/L Anion Gap (5.0-14.0) mmol/L BUN (7-18) mg/dL Creatinine (0.6-1.0) mg/dL Est Cr Clr Drug Dosing mL/min Estimated GFR (MDRD) (>60) Glucose (74-106) mg/dL POC Glucose 260 H (74-106) mg/dL Calcium (8.5-10.1) mg/dL NT-Pro-B Natriuret Pep (5-450) pg/mL Blood Type Gel Antibody Screen Crossmatch Med Orders - Current: Current Medications Acetaminophen (Acetaminophen 325 Mg Tab) 650 mg PO Q6H [facility] Last Admin: 05/08/21 16:22 Dose: 650 mg Documented by: Albuterol/Ipratropium (Albuterol/Ipratropium 3.0-0.5 Mg/3 Ml Neb Soln) 3 ml NEB Q6H PRN PRN Reason: Wheezing Allopurinol (Allopurinol 100 Mg Tab) 100 mg PO DAILY [facility] Last Admin: 05/08/21 09:24 Dose: 100 mg Documented by: Alvimopan (Alvimopan 12 Mg Capsule) 12 mg PO Q12H [facility] Stop: 05/14/21 09:01 Last Admin: 05/08/21 09:22 Dose: 12 mg Documented by: Amlodipine Besylate (Amlodipine 5 Mg Tab) 2.5 mg PO DAILY [facility] Last Admin: 05/08/21 09:22 Dose: 2.5 mg Documented by: Benzocaine/Menthol (Benzocaine/Cetylpyridinium/Menthol Lozenge) 1 lozenge MUCMEM Q1H PRN PRN Reason: Sore Throat Bisacodyl (Bisacodyl 5 Mg Tab) 10 mg PO BID [facility] Last Admin: 05/08/21 09:22 Dose: 10 mg Documented by: Dextrose (Glucose Gel 15 Gm In 37.5 Gm Tube) 15 gm PO ONETIME PRN PRN Reason: Hypoglycemia Dextrose/Water (50% Dextrose In Water 50 Ml Syringe) 50 ml IV ONETIME PRN PRN Reason: Hypoglycemia Diphenhydramine HCl (Diphenhydramine 50 Mg/Ml Sdv) 25 mg IVPUSH Q6H PRN PRN Reason: ITCHING Diphenhydramine HCl (Diphenhydramine 50 Mg/Ml Sdv) 50 mg IVPUSH Q6H PRN PRN Reason: ITCHING Docusate Sodium (Docusate Sodium 100 Mg Cap) 100 mg PO BID [facility] Last Admin: 05/08/21 09:22 Dose: 100 mg Documented by: Enoxaparin Sodium (Enoxaparin 30 Mg/0.3 Ml Syringe) 30 mg SUBCUT BEDTIME [facility] Ephedrine Sulfate (Ephedrine 50 Mg/Ml Sdv) 5 - 10 mg IV ASDIRECTED PRN PRN Reason: SYSTOLIC BP LESS THAN 100 Fentanyl (Fentanyl 100 Mcg/2 Ml Sdv) 25 mcg IVPUSH Q1H PRN PRN Reason: Pain (moderate 4-6) Glipizide (Glipizide 5 Mg Tab) 2.5 mg PO ACBREAKFAST [facility] Last Admin: 05/08/21 09:21 Dose: 2.5 mg Documented by: Hydroxyzine HCl (Hydroxyzine Hcl 100 Mg/2 Ml Sdv) 50 mg IM Q4H PRN PRN Reason: Nausea Fentanyl 2,500 mcg/ Sodium (Chloride) 250 mls @ 0 mls/hr EPIDUR TITRATE [facility]; Protocol Last Admin: 05/08/21 03:53 Dose: 12 mls/hr, 12 mls/hr Documented by: Naloxone HCl 0.4 mg/ Lactated (Ringer's) 1,001 mls @ 100 mls/hr IV .Q10H1M [facility] Last Admin: 05/08/21 13:13 Dose: 100 mls/hr Documented by: Insulin Human Lispro (Insulin Lispro 100 Unit/Ml 3 Ml Kwikpen) 0 unit SUBCUT QIDACANDBED [facility]; Protocol Last Admin: 05/08/21 16:22 Dose: Not Given Documented by: Metoclopramide HCl (Metoclopramide 10 Mg/2 Ml Sdv) 10 mg IV Q6H PRN PRN Reason: Nausea Naloxone HCl (Naloxone 0.4 Mg/Ml Sdv) 0.1 mg IVPUSH Q5M PRN PRN Reason: RESP RATE LESS THAN 6/MINUTE Naloxone HCl (Naloxone 0.4 Mg/Ml Sdv) 0.4 mg IV ASDIRECTED PRN PRN Reason: ITCHING Ondansetron HCl (Ondansetron 4 Mg Tab.Dis) 4 mg PO Q6H PRN PRN Reason: Nausea/Vomiting Oxycodone/Acetaminophen (Acetaminophen/Oxycodone 325-5 Mg Tab) 2 tab PO Q4H PRN PRN Reason: Pain (moderate 4-6) Discontinued Medications Dexamethasone (Dexamethasone 4 Mg/Ml Sdv) Confirm Administered Dose 4 mg .ROUTE .STK-MED ONE Stop: 05/07/21 07:20 Enoxaparin Sodium (Enoxaparin 40 Mg/0.4 Ml Syringe) 40 mg SUBCUT BEDTIME [facility] Last Admin: 05/07/21 21:14 Dose: 40 mg Documented by: Ephedrine Sulfate (Ephedrine 50 Mg/Ml Sdv) Confirm Administered Dose 50 mg .ROUTE .STK-MED ONE Stop: 05/07/21 08:23 Ephedrine Sulfate (Ephedrine 50 Mg/Ml Sdv) Confirm Administered Dose 50 mg .ROUTE .STK-MED ONE Stop: 05/07/21 08:45 Fentanyl (Fentanyl 250 Mcg/5 Ml Sdv) Confirm Administered Dose 250 mcg .ROUTE .STK-MED ONE Stop: 05/07/21 07:20 Glipizide (Glipizide 5 Mg Tab) 2.5 mg PO DAILY [facility] Glycopyrrolate (Glycopyrrolate 0.2 Mg/Ml 5 Ml Mdv) Confirm Administered Dose 1 mg .ROUTE .STK-MED ONE Stop: 05/07/21 07:20 Sodium Chloride (Normal Saline) 1,000 mls @ 75 mls/hr IV ASDIRECTED [facility] Last Admin: 05/07/21 07:03 Dose: 75 mls/hr Documented by: Cefazolin Sodium/Dextrose 2 gm (/ Premix) 50 mls @ 100 mls/hr IV ONETIME ONE Stop: 05/07/21 07:59 Last Admin: 05/07/21 07:26 Dose: 100 mls/hr Documented by: Metronidazole 500 mg/ Premix 100 mls @ 100 mls/hr IV ONETIME ONE Stop: 05/07/21 08:29 Last Admin: 05/07/21 07:26 Dose: 100 mls/hr Documented by: Sodium Chloride (Normal Saline) Confirm Administered Dose 10 mls @ as directed .ROUTE .STK-MED ONE Stop: 05/07/21 07:23 Sodium Chloride (Normal Saline) Confirm Administered Dose 10 mls @ as directed .ROUTE .STK-MED ONE Stop: 05/07/21 08:23 Sodium Chloride (Normal Saline) Confirm Administered Dose 10 mls @ as directed .ROUTE .STK-MED ONE Stop: 05/07/21 08:46 Lactated Ringer's (Ringers, Lactated) Confirm Administered Dose 1,000 mls @ as directed .ROUTE .STK-MED ONE Stop: 05/07/21 08:52 Naloxone HCl 0.4 mg/ Sodium (Chloride) 1,001 mls @ 75 mls/hr IV .[id number] [facility] Stop: 05/07/21 20:59 Last Admin: 05/07/21 11:43 Dose: 75 mls/hr Documented by: Cefazolin Sodium/Dextrose 1 gm (/ Premix) 50 mls @ 100 mls/hr IV Q8H [facility] Stop: 05/08/21 00:29 Last Admin: 05/07/21 23:20 Dose: 100 mls/hr Documented by: Naloxone HCl 0.4 mg/ Sodium (Chloride) 1,001 mls @ 125 mls/hr IV .Q8H1M [facility] Stop: 05/08/21 12:55 Last Admin: 05/08/21 07:49 Dose: 125 mls/hr Documented by: Sodium Chloride (Normal Saline) 250 mls @ 500 mls/hr IV ONETIME ONE Stop: 05/07/21 20:43 Last Admin: 05/07/21 20:23 Dose: 500 mls/hr Documented by: Sodium Chloride (Normal Saline) 250 mls @ 500 mls/hr IV ONETIME ONE Stop: 05/08/21 01:50 Last Admin: 05/08/21 01:28 Dose: 500 mls/hr Documented by: Ketorolac Tromethamine (Ketorolac 30 Mg/Ml Sdv) 30 mg IVPUSH Q6H [facility] Stop: 05/08/21 08:01 Last Admin: 05/07/21 14:16 Dose: 30 mg Documented by: Ketorolac Tromethamine (Ketorolac 30 Mg/Ml Sdv) 15 mg IVPUSH Q6H [facility] Stop: 05/08/21 08:01 Last Admin: 05/08/21 08:40 Dose: Not Given Documented by: Neostigmine Methylsulfate (Neostigmine Methylsulfate 1 Mg/Ml 5 Ml Syringe) Confirm Administered Dose 5 mg .ROUTE .STK-MED ONE Stop: 05/07/21 07:20 Ondansetron HCl (Ondansetron 4 Mg/2 Ml Sdv) Confirm Administered Dose 4 mg .ROUTE .STK-MED ONE Stop: 05/07/21 07:20 Ondansetron HCl (Ondansetron 4 Mg/2 Ml Sdv) Confirm Administered Dose 4 mg .ROUTE .STK-MED ONE Stop: 05/07/21 10:31 Last Admin: 05/07/21 10:38 Dose: Not Given Documented by: Phenylephrine HCl (Phenylephrine 1% 10 Mg/Ml Sdv) Confirm Administered Dose 10 mg .ROUTE .STK-MED ONE Stop: 05/07/21 08:46 Propofol (Propofol 200 Mg/20 Ml Sdv) Confirm Administered Dose 200 mg .ROUTE .STK-MED ONE Stop: 05/07/21 07:20 Rocuronium [place] (Rocuronium 50 Mg/5 Ml Vial) Confirm Administered Dose 50 mg .ROUTE .STK-MED ONE Stop: 05/07/21 07:20 Succinylcholine Chloride (Succinylcholine 200 Mg/10 Ml Mdv) Confirm Administered Dose 200 mg .ROUTE .STK-MED ONE Stop: 05/07/21 07:20 - Exam Quality Assessment: DVT Prophylaxis Urinary Catheter Total Time: 1Days 4Hours General: Alert, Cooperative, No Acute Distress. No: Oriented Lungs: Clear to Auscultation, Normal Respiratory Effort Cardiovascular: Regular Rate, Regular Rhythm, No Murmurs GI/Abdominal Exam: Soft, Non-Tender, No Organomegaly, No Distention Extremities: Non-Tender, No Pedal Edema Sepsis Event Note - Evaluation Sepsis Screening Result: No Definite Risk - Focused Exam Vital Signs: Vital Signs Temp Temp Pulse Resp BP BP Pulse Ox 05/08/21 16:00 98.2 F 77 12 119/56 L 95 05/08/21 13:03 98.2 F 76 14 116/57 L 97 05/08/21 12:46 98.2 F 67 12 116/40 L 95 05/08/21 12:30 68 12 133/49 L 96 05/08/21 12:15 66 12 135/53 L 95 05/08/21 12:02 98.3 F 68 14 130/50 L 95 05/08/21 11:50 98.3 F 72 14 117/82 95 05/08/21 11:35 98.2 F 78 12 129/58 L 95 05/08/21 11:20 98.4 F 78 12 120/58 L 95 05/08/21 11:04 98.3 F 80 12 130/65 94 L 05/08/21 10:51 98.4 F 88 14 139/65 92 L 05/08/21 10:39 98.4 F 94 12 135/72 96 05/08/21 09:22 147/63 H 05/08/21 08:00 98.1 F 12 142/65 H 96 Consult PN Assessment/Plan Procedures: Procedures BREAST TOMOSYNTHESIS BI (07/15/20) COLONOSCOPY AND BIOPSY (03/23/21) COLONOSCOPY SUBMUCOUS NJX (03/23/21) COLONOSCOPY W/LESION REMOVAL (11/23/20) COMP SCREEN MAMMOGRAM ADD-ON (07/16/15) EMERGENCY DEPT VISIT (12/05/20) EMERGENCY DEPT VISIT (02/10/19) EXTREMITY STUDY (02/10/19) SCR MAMMO BI INCL CAD (07/15/20) THER/PROPH/DIAG IV INF INIT (12/05/20) TISSUE EXAM BY PATHOLOGIST (03/23/21) US EXAM ABDO BACK WALL SABILLON (07/07/15) X-RAY EXAM OF ANKLE (02/10/19) X-RAY EXAM OF FOOT (02/10/19) X-RAY EXAM OF KNEE 1 OR 2 (12/05/20) Problem List Initiated/Reviewed/Updated: Yes My Orders Last 24 Hours: My Active Orders 05/07/21 17:00 Insulin Lispro [HumaLOG] See Protocol SUBCUT QIDACANDBED 05/08/21 09:00 allopurinoL [Zyloprim] 100 mg PO DAILY amLODIPine [Norvasc] 2.5 mg PO DAILY Plan: ASSESSMENT AND RECOMMENDATIONS STATUS POST HEMICOLECTOMY FOR COLON CANCER-stable and doing well, except for some confusion likely related to medications -Postoperative care per Dr. Quevedo and Dr. Orlando TYPE 2 DIABETES MELLITUS -Hold oral hypo-glycemic therapy -4 times daily glucometers -Moderate dose sliding scale insulin HYPERTENSION -Continue outpatient medications CHRONIC KIDNEY DISEASE STAGE III-renal function stable thus far with adequate urine output -Closely monitor urine output and renal function -Hold furosemide
[2021-05-08] MEDS: Enoxaparin 30 MG/0.3 ML Syringe SUBCUT SCH (21:45)
--- NOTE | 2021-05-08 21:46 | PN ---
DATE OF SERVICE: 05/08/2021 The patient has been clinically stable overnight. Pain control been good with the epidural and we will leave that in place for today. Otherwise, status post right colectomy and tolerating liquid diet satisfactorily, will go to a consistent carb diet with her diabetic status and some glipizide. Her electrolyte profile is trending toward high chloride and low CO2, so we will switch her over to LR after receiving 1 unit of packed RBCs for hemoglobin of 8.4. We took a baseline BNP this morning on blood draw to fine-tune her electrolyte and metabolic status. Otherwise, we will get her a PT consult and have the patient get up and walk with a walker at least 3 times a day. Rui Orlando MD Job #: [id number]
[2021-05-09] MEDS: Acetaminophen 325 MG Tab PO SCH ×4 (05:16→21:21)
[2021-05-09] MEDS: Insulin Lispro 100 Unit/ML 3 ML KwikPen SUBCUT SCH ×4 (08:35→20:57)
[2021-05-09] MEDS: glipiZIDE 5 MG Tab PO SCH (08:41)
[2021-05-09] MEDS: Docusate Sodium 100 MG Cap PO SCH ×2 (08:41→21:19)
[2021-05-09] MEDS: Bisacodyl 5 MG Tab PO SCH ×2 (08:41→21:20)
[2021-05-09] MEDS: NALOXONE IV SCH ×4 (08:42→11:12)
[2021-05-09] MEDS: LACTATED RINGERS IV SCH ×4 (08:42→11:12)
[2021-05-09] MEDS: amLODIPine 5 MG Tab PO SCH (08:44)
[2021-05-09] MEDS ORDERED: Furosemide 20 MG/2 ML VIAL IV ONE (08:45)
[2021-05-09] MEDS: Allopurinol 100 MG Tab PO SCH (08:45)
[2021-05-09] MEDS ORDERED: Furosemide 20 MG/2 ML VIAL IV SCH (11:00)
[2021-05-09] MEDS: Magnesium Sulfate/Water 2 GM in Premix Bag 1 BAG IV SCH ×3 (11:10→21:20)
--- NOTE | 2021-05-09 12:22 | PN ---
DATE OF SERVICE: 05/09/2021 The patient has been afebrile with stable vital signs. Pain control remains fairly good with the epidural catheter in place, and we will leave that in for another 24 hours. Given the plan to go home safely, we will remove that tomorrow. We will hold the Lovenox after this morning dose everything after evening dose tonight. Her hemoglobin remains somewhat low at 8.9. We will give her one unit of packed RBCs once again and a small dose of Lasix before and after the transfusion. Magnesium is also somewhat low, and this will be supplemented over the 48 hours. Otherwise, oral intake has been fairly good, and we will continue bowel stimulation, maximize activity, and work with pulmonary toilet. Her blood sugar has now come under good control with addition of the glipizide, running between 112 and 131 over the last 18 hours. Rui Orlando MD Job #: [id number]
--- NOTE | 2021-05-09 16:01 | PCM.CONSN ---
- General Info Date of Service: 05/09/21 Subjective Update: Ms. Mulligan has been stable since yesterday. Cognitively she is more clear clear and shows no evidence of significant confusion today. Renal function has remained stable and she reports that her pain control has been adequate. Functional Status: Reports: Tolerating Diet, Urinating - Review of Systems General: Reports: No Symptoms Pulmonary: Reports: No Symptoms Cardiovascular: Reports: No Symptoms Gastrointestinal: Reports: Abdominal Pain. Denies: Diarrhea, Difficulty Swallowing, Flatus, Nausea, Vomiting Genitourinary: Reports: No Symptoms - Patient Data Vitals - Most Recent: Last Vital Signs Temp 98.4 F 05/09/21 15:00 Pulse 78 05/09/21 15:00 Resp 16 05/09/21 15:00 BP 143/92 H 05/09/21 15:00 Pulse Ox 95 05/09/21 15:00 Weight - Most Recent: 172 lb I&O - Last 24 Hours: Intake & Output 05/09/21 05/09/21 05/09/21 06:59 14:59 22:59 Intake Total 500 Output Total 1000 1900 Balance -1000 -1400 Lab Results Last 24 Hours: Laboratory Results - last 24 hr 05/07/21 05/08/21 05/08/21 Range/Units 05:45 16:21 21:14 WBC (4.5-11.0) K/uL RBC (3.30-5.50) M/uL Hgb (12.0-15.0) g/dL Hct (36.0-48.0) % MCV (80-98) fL MCH (27-31) pg MCHC (32-36) % Plt Count (150-400) K/uL Sodium (140-148) mmol/L Potassium (3.6-5.2) mmol/L Chloride (100-108) mmol/L Carbon Dioxide (21-32) mmol/L Anion Gap (5.0-14.0) mmol/L BUN (7-18) mg/dL Creatinine (0.6-1.0) mg/dL Est Cr Clr Drug Dosing mL/min Estimated GFR (MDRD) (>60) Glucose (74-106) mg/dL POC Glucose 131 H 115 H (74-106) mg/dL Calcium (8.5-10.1) mg/dL Phosphorus (2.5-4.9) mg/dL Magnesium (1.8-2.4) mg/dL Total Bilirubin (0.2-1.0) mg/dL AST (15-37) U/L ALT (12-78) U/L Alkaline Phosphatase (46-116) U/L NT-Pro-B Natriuret Pep (5-450) pg/mL Total Protein (6.4-8.2) g/dL Albumin (3.4-5.0) g/dL Globulin (2.3-3.5) g/dL Albumin/Globulin Ratio (1.2-2.2) Blood Type O NEGATIVE Gel Antibody Screen Negative Crossmatch See Detail 05/09/21 05/09/21 05/09/21 Range/Units 04:30 04:30 07:27 WBC 7.7 (4.5-11.0) K/uL RBC 2.95 L (3.30-5.50) M/uL Hgb 8.9 L (12.0-15.0) g/dL Hct 27.5 L (36.0-48.0) % MCV 93 (80-98) fL MCH 30 (27-31) pg MCHC 32 (32-36) % Plt Count 243 (150-400) K/uL Sodium 137 L (140-148) mmol/L Potassium 4.5 (3.6-5.2) mmol/L Chloride 104 (100-108) mmol/L Carbon Dioxide 22 (21-32) mmol/L Anion Gap 15.5 H (5.0-14.0) mmol/L BUN 28 H (7-18) mg/dL Creatinine 1.7 H (0.6-1.0) mg/dL Est Cr Clr Drug Dosing 20.58 mL/min Estimated GFR (MDRD) 29 L (>60) Glucose 121 H (74-106) mg/dL POC Glucose 112 H (74-106) mg/dL Calcium 7.8 L (8.5-10.1) mg/dL Phosphorus 3.2 (2.5-4.9) mg/dL Magnesium 1.7 L (1.8-2.4) mg/dL Total Bilirubin 0.2 (0.2-1.0) mg/dL AST 31 (15-37) U/L ALT 27 (12-78) U/L Alkaline Phosphatase 123 H (46-116) U/L NT-Pro-B Natriuret Pep 1065 H (5-450) pg/mL Total Protein 4.9 L (6.4-8.2) g/dL Albumin 2.3 L (3.4-5.0) g/dL Globulin 2.6 (2.3-3.5) g/dL Albumin/Globulin Ratio 0.9 L (1.2-2.2) Blood Type Gel Antibody Screen Crossmatch 05/09/21 Range/Units 11:34 WBC (4.5-11.0) K/uL RBC (3.30-5.50) M/uL Hgb (12.0-15.0) g/dL Hct (36.0-48.0) % MCV (80-98) fL MCH (27-31) pg MCHC (32-36) % Plt Count (150-400) K/uL Sodium (140-148) mmol/L Potassium (3.6-5.2) mmol/L Chloride (100-108) mmol/L Carbon Dioxide (21-32) mmol/L Anion Gap (5.0-14.0) mmol/L BUN (7-18) mg/dL Creatinine (0.6-1.0) mg/dL Est Cr Clr Drug Dosing mL/min Estimated GFR (MDRD) (>60) Glucose (74-106) mg/dL POC Glucose 136 H (74-106) mg/dL Calcium (8.5-10.1) mg/dL Phosphorus (2.5-4.9) mg/dL Magnesium (1.8-2.4) mg/dL Total Bilirubin (0.2-1.0) mg/dL AST (15-37) U/L ALT (12-78) U/L Alkaline Phosphatase (46-116) U/L NT-Pro-B Natriuret Pep (5-450) pg/mL Total Protein (6.4-8.2) g/dL Albumin (3.4-5.0) g/dL Globulin (2.3-3.5) g/dL Albumin/Globulin Ratio (1.2-2.2) Blood Type Gel Antibody Screen Crossmatch Med Orders - Current: Current Medications Acetaminophen (Acetaminophen 325 Mg Tab) 650 mg PO Q6H TALHA Last Admin: 05/09/21 11:10 Dose: 650 mg Documented by: Albuterol/Ipratropium (Albuterol/Ipratropium 3.0-0.5 Mg/3 Ml Neb Soln) 3 ml NEB Q6H PRN PRN Reason: Wheezing Allopurinol (Allopurinol 100 Mg Tab) 100 mg PO DAILY [facility] Last Admin: 05/09/21 08:45 Dose: 100 mg Documented by: Alvimopan (Alvimopan 12 Mg Capsule) 12 mg PO Q12H [facility] Stop: 05/14/21 09:01 Last Admin: 05/09/21 08:44 Dose: 12 mg Documented by: Amlodipine Besylate (Amlodipine 5 Mg Tab) 2.5 mg PO DAILY [facility] Last Admin: 05/09/21 08:44 Dose: 2.5 mg Documented by: Benzocaine/Menthol (Benzocaine/Cetylpyridinium/Menthol Lozenge) 1 lozenge MUCMEM Q1H PRN PRN Reason: Sore Throat Bisacodyl (Bisacodyl 5 Mg Tab) 10 mg PO BID [facility] Last Admin: 05/09/21 08:41 Dose: 10 mg Documented by: Dextrose (Glucose Gel 15 Gm In 37.5 Gm Tube) 15 gm PO ONETIME PRN PRN Reason: Hypoglycemia Dextrose/Water (50% Dextrose In Water 50 Ml Syringe) 50 ml IV ONETIME PRN PRN Reason: Hypoglycemia Diphenhydramine HCl (Diphenhydramine 50 Mg/Ml Sdv) 25 mg IVPUSH Q6H PRN PRN Reason: ITCHING Diphenhydramine HCl (Diphenhydramine 50 Mg/Ml Sdv) 50 mg IVPUSH Q6H PRN PRN Reason: ITCHING Docusate Sodium (Docusate Sodium 100 Mg Cap) 100 mg PO BID [facility] Last Admin: 05/09/21 08:41 Dose: 100 mg Documented by: Enoxaparin Sodium (Enoxaparin 30 Mg/0.3 Ml Syringe) 30 mg SUBCUT BEDTIME [facility] Last Admin: 05/08/21 21:45 Dose: 30 mg Documented by: Ephedrine Sulfate (Ephedrine 50 Mg/Ml Sdv) 5 - 10 mg IV ASDIRECTED PRN PRN Reason: SYSTOLIC BP LESS THAN 100 Fentanyl (Fentanyl 100 Mcg/2 Ml Sdv) 25 mcg IVPUSH Q1H PRN PRN Reason: Pain (moderate 4-6) Furosemide (Furosemide 20 Mg/2 Ml Vial) 10 mg IV ASDIRECTED [facility] Glipizide (Glipizide 5 Mg Tab) 2.5 mg PO ACBREAKFAST [facility] Last Admin: 05/09/21 08:41 Dose: 2.5 mg Documented by: Hydroxyzine HCl (Hydroxyzine Hcl 100 Mg/2 Ml Sdv) 50 mg IM Q4H PRN PRN Reason: Nausea Fentanyl 2,500 mcg/ Sodium (Chloride) 250 mls @ 0 mls/hr EPIDUR TITRATE [facility]; Protocol Last Admin: 05/08/21 03:53 Dose: 12 mls/hr, 12 mls/hr Documented by: Magnesium Sulfate 2 gm/ Premix 50 mls @ 25 mls/hr IV Q6H [facility] Stop: 05/11/21 05:59 Last Admin: 05/09/21 11:10 Dose: 25 mls/hr Documented by: Naloxone HCl 0.4 mg/ Lactated (Ringer's) 1,001 mls @ 25 mls/hr IV .Q24H [facility] Last Admin: 05/09/21 11:12 Dose: Not Given Documented by: Insulin Human Lispro (Insulin Lispro 100 Unit/Ml 3 Ml Kwikpen) 0 unit SUBCUT QIDACANDBED [facility]; Protocol Last Admin: 05/09/21 12:25 Dose: Not Given Documented by: Metoclopramide HCl (Metoclopramide 10 Mg/2 Ml Sdv) 10 mg IV Q6H PRN PRN Reason: Nausea Naloxone HCl (Naloxone 0.4 Mg/Ml Sdv) 0.1 mg IVPUSH Q5M PRN PRN Reason: RESP RATE LESS THAN 6/MINUTE Naloxone HCl (Naloxone 0.4 Mg/Ml Sdv) 0.4 mg IV ASDIRECTED PRN PRN Reason: ITCHING Ondansetron HCl (Ondansetron 4 Mg Tab.Dis) 4 mg PO Q6H PRN PRN Reason: Nausea/Vomiting Oxycodone/Acetaminophen (Acetaminophen/Oxycodone 325-5 Mg Tab) 2 tab PO Q4H PRN PRN Reason: Pain (moderate 4-6) Discontinued Medications Dexamethasone (Dexamethasone 4 Mg/Ml Sdv) Confirm Administered Dose 4 mg .ROUTE .STK-MED ONE Stop: 05/07/21 07:20 Enoxaparin Sodium (Enoxaparin 40 Mg/0.4 Ml Syringe) 40 mg SUBCUT BEDTIME [facility] Last Admin: 05/07/21 21:14 Dose: 40 mg Documented by: Ephedrine Sulfate (Ephedrine 50 Mg/Ml Sdv) Confirm Administered Dose 50 mg .ROUTE .STK-[facility] ONE Stop: 05/07/21 08:23 Ephedrine Sulfate (Ephedrine 50 Mg/Ml Sdv) Confirm Administered Dose 50 mg .ROUTE .ST-MED ONE Stop: 05/07/21 08:45 Fentanyl (Fentanyl 250 Mcg/5 Ml Sdv) Confirm Administered Dose 250 mcg .ROUTE .[facility] ONE Stop: 05/07/21 07:20 Furosemide (Furosemide 20 Mg/2 Ml Vial) 10 mg IV ONETIME ONE Stop: 05/09/21 08:46 Last Admin: 05/09/21 08:46 Dose: 10 mg Documented by: Glipizide (Glipizide 5 Mg Tab) 2.5 mg PO DAILY [facility] Glycopyrrolate (Glycopyrrolate 0.2 Mg/Ml 5 Ml Mdv) Confirm Administered Dose 1 mg .ROUTE .[facility] ONE Stop: 05/07/21 07:20 Sodium Chloride (Normal Saline) 1,000 mls @ 75 mls/hr IV ASDIRECTED [facility] Last Admin: 05/07/21 07:03 Dose: 75 mls/hr Documented by: Cefazolin Sodium/Dextrose 2 gm (/ Premix) 50 mls @ 100 mls/hr IV ONETIME ONE Stop: 05/07/21 07:59 Last Admin: 05/07/21 07:26 Dose: 100 mls/hr Documented by: Metronidazole 500 mg/ Premix 100 mls @ 100 mls/hr IV ONETIME ONE Stop: 05/07/21 08:29 Last Admin: 05/07/21 07:26 Dose: 100 mls/hr Documented by: Sodium Chloride (Normal Saline) Confirm Administered Dose 10 mls @ as directed .ROUTE .STK-MED ONE Stop: 05/07/21 07:23 Sodium Chloride (Normal Saline) Confirm Administered Dose 10 mls @ as directed .ROUTE .ST-MED ONE Stop: 05/07/21 08:23 Sodium Chloride (Normal Saline) Confirm Administered Dose 10 mls @ as directed .ROUTE .STK-MED ONE Stop: 05/07/21 08:46 Lactated Ringer's (Ringers, Lactated) Confirm Administered Dose 1,000 mls @ as directed .ROUTE .STK-MED ONE Stop: 05/07/21 08:52 Naloxone HCl 0.4 mg/ Sodium (Chloride) 1,001 mls @ 75 mls/hr IV .[id number] [facility] Stop: 05/07/21 20:59 Last Admin: 05/07/21 11:43 Dose: 75 mls/hr Documented by: Cefazolin Sodium/Dextrose 1 gm (/ Premix) 50 mls @ 100 mls/hr IV Q8H [facility] Stop: 05/08/21 00:29 Last Admin: 05/07/21 23:20 Dose: 100 mls/hr Documented by: Naloxone HCl 0.4 mg/ Sodium (Chloride) 1,001 mls @ 125 mls/hr IV .Q8H1M [facility] Stop: 05/08/21 12:55 Last Admin: 05/08/21 07:49 Dose: 125 mls/hr Documented by: Sodium Chloride (Normal Saline) 250 mls @ 500 mls/hr IV ONETIME ONE Stop: 05/07/21 20:43 Last Admin: 05/07/21 20:23 Dose: 500 mls/hr Documented by: Sodium Chloride (Normal Saline) 250 mls @ 500 mls/hr IV ONETIME ONE Stop: 05/08/21 01:50 Last Admin: 05/08/21 01:28 Dose: 500 mls/hr Documented by: Naloxone HCl 0.4 mg/ Lactated (Ringer's) 1,001 mls @ 100 mls/hr IV .Q10H1M [facility] Stop: 05/09/21 09:55 Last Infusion: 05/09/21 09:34 Dose: 25 mls/hr Documented by: Ketorolac Tromethamine (Ketorolac 30 Mg/Ml Sdv) 30 mg IVPUSH Q6H [facility] Stop: 05/08/21 08:01 Last Admin: 05/07/21 14:16 Dose: 30 mg Documented by: Ketorolac Tromethamine (Ketorolac 30 Mg/Ml Sdv) 15 mg IVPUSH Q6H [facility] Stop: 05/08/21 08:01 Last Admin: 05/08/21 08:40 Dose: Not Given Documented by: Neostigmine Methylsulfate (Neostigmine Methylsulfate 1 Mg/Ml 5 Ml Syringe) Confirm Administered Dose 5 mg .ROUTE .STK-MED ONE Stop: 05/07/21 07:20 Ondansetron HCl (Ondansetron 4 Mg/2 Ml Sdv) Confirm Administered Dose 4 mg .ROUTE .STK-MED ONE Stop: 05/07/21 07:20 Ondansetron HCl (Ondansetron 4 Mg/2 Ml Sdv) Confirm Administered Dose 4 mg .ROUTE .STK-MED ONE Stop: 05/07/21 10:31 Last Admin: 05/07/21 10:38 Dose: Not Given Documented by: Phenylephrine HCl (Phenylephrine 1% 10 Mg/Ml Sdv) Confirm Administered Dose 10 mg .ROUTE .STK-MED ONE Stop: 05/07/21 08:46 Propofol (Propofol 200 Mg/20 Ml Sdv) Confirm Administered Dose 200 mg .ROUTE .STK-MED ONE Stop: 05/07/21 07:20 Rocuronium [place] (Rocuronium 50 Mg/5 Ml Vial) Confirm Administered Dose 50 mg .ROUTE .STK-MED ONE Stop: 05/07/21 07:20 Succinylcholine Chloride (Succinylcholine 200 Mg/10 Ml Mdv) Confirm Administered Dose 200 mg .ROUTE .STK-MED ONE Stop: 05/07/21 07:20 - Exam Quality Assessment: DVT Prophylaxis Urinary Catheter Total Time: 2Days 0Hours General: Alert, Oriented, Cooperative, Mild Distress Lungs: Clear to Auscultation, Normal Respiratory Effort Cardiovascular: Regular Rate, Regular Rhythm, No Murmurs GI/Abdominal Exam: Soft, No Organomegaly, Tender. No: Distended, Guarding, Rigid, Rebound Extremities: Non-Tender, No Pedal Edema Sepsis Event Note - Evaluation Sepsis Screening Result: No Definite Risk - Focused Exam Vital Signs: Vital Signs Temp Temp Pulse Resp BP BP Pulse Ox 05/09/21 15:00 98.4 F 78 16 143/92 H 95 05/09/21 14:45 98.5 F 78 16 147/42 H 96 05/09/21 14:30 98.6 F 79 16 148/49 H 95 05/09/21 14:10 98.6 F 78 16 178/48 H 96 05/09/21 13:55 98.4 F 79 16 175/45 H 05/09/21 12:53 99 05/09/21 12:00 05/09/21 11:00 98.0 F 80 16 163/73 H 92 L 05/09/21 08:44 154/86 H 05/09/21 07:35 96 05/09/21 07:18 98.8 F 83 16 154/86 H 97 Pulse Ox 05/09/21 15:00 05/09/21 14:45 05/09/21 14:30 05/09/21 14:10 05/09/21 13:55 05/09/21 12:53 05/09/21 12:00 92 L 05/09/21 11:00 05/09/21 08:44 05/09/21 07:35 05/09/21 07:18 Consult PN Assessment/Plan Procedures: Procedures BREAST TOMOSYNTHESIS BI (07/15/20) COLONOSCOPY AND BIOPSY (03/23/21) COLONOSCOPY SUBMUCOUS NJX (03/23/21) COLONOSCOPY W/LESION REMOVAL (11/23/20) COMP SCREEN MAMMOGRAM ADD-ON (07/16/15) EMERGENCY DEPT VISIT (12/05/20) EMERGENCY DEPT VISIT (02/10/19) EXTREMITY STUDY (02/10/19) SCR MAMMO BI INCL CAD (07/15/20) THER/PROPH/DIAG IV INF INIT (12/05/20) TISSUE EXAM BY PATHOLOGIST (03/23/21) US EXAM ABDO BACK WALL [place] (07/07/15) X-RAY EXAM OF ANKLE (02/10/19) X-RAY EXAM OF FOOT (02/10/19) X-RAY EXAM OF KNEE 1 OR 2 (12/05/20) Problem List Initiated/Reviewed/Updated: Yes Plan: ASSESSMENT AND RECOMMENDATIONS STATUS POST HEMICOLECTOMY FOR COLON CANCER-stable and doing well, confusion has resolved with decrease in level of pain medications -Postoperative care per Dr. Quevedo and Dr. Orlando TYPE 2 DIABETES MELLITUS -Hold oral hypo-glycemic therapy -4 times daily glucometers -Moderate dose sliding scale insulin HYPERTENSION -Continue outpatient medications CHRONIC KIDNEY DISEASE STAGE IV-renal function stable thus far with adequate urine output -Closely monitor urine output and renal function -Furosemide is ordered by Dr. Orlando -Agree with decreasing IV fluids
[2021-05-09] MEDS: fentaNYL 2,500 MCG in Sodium Chloride 0.9% 200 ML EPIDUR SCH (19:34)
[2021-05-10] MEDS: Magnesium Sulfate/Water 2 GM in Premix Bag 1 BAG IV SCH ×3 (05:22→15:40)
[2021-05-10] MEDS: Acetaminophen 325 MG Tab PO SCH ×4 (05:22→21:44)
[2021-05-10] MEDS: glipiZIDE 5 MG Tab PO SCH (07:28)
[2021-05-10] MEDS: amLODIPine 5 MG Tab PO SCH ×2 (07:29→08:58)
[2021-05-10] MEDS: Insulin Lispro 100 Unit/ML 3 ML KwikPen SUBCUT SCH ×4 (07:32→21:44)
[2021-05-10] MEDS: Ondansetron 4 MG Tab.DIS PO PRN ×2 (08:12→17:06)
[2021-05-10] MEDS: Allopurinol 100 MG Tab PO SCH (08:58)
[2021-05-10] MEDS: Docusate Sodium 100 MG Cap PO SCH ×2 (08:58→21:08)
[2021-05-10] MEDS: Bisacodyl 5 MG Tab PO SCH ×2 (08:58→21:08)
[2021-05-10] MEDS: LACTATED RINGERS IV SCH ×2 (09:53)
[2021-05-10] MEDS: NALOXONE IV SCH ×2 (09:53)
--- NOTE | 2021-05-10 10:22 | PN ---
DATE OF SERVICE: 05/10/2021 SUBJECTIVE: The patient doing very well today. Pain is controlled. She has mild amount of nausea. No vomiting, shortness of breath, or chest pain. She is having bowel movements. OBJECTIVE: VITAL SIGNS: Stable. CARDIOVASCULAR: Regular rhythm and rate. RESPIRATORY: Lungs clear to auscultation bilaterally. Incision healing well. ASSESSMENT: Status post right hemicolectomy. PLAN: The patient will be discharged in the next 24 to 48 hours. We will remove her epidural today. We will work on p.o. pain medication. Continue her Anthony catheter. Jos Quevedo MD /[phone]
--- NOTE | 2021-05-10 12:18 | PCM.CONSN ---
- General Info Date of Service: 05/10/21 Subjective Update: No acute events overnight. Patient reports minimal pain. Epidural came out today. Appetite has been okay. She does report some heartburn. Kidney function stable. Blood sugars have been well controlled. Functional Status: Reports: Pain Controlled, Tolerating Diet - Patient Data Vitals - Most Recent: Last Vital Signs Temp 36.8 C 05/10/21 11:37 Pulse 89 05/10/21 11:37 Resp 18 05/10/21 11:37 BP 150/66 H 05/10/21 11:37 Pulse Ox 91 L 05/10/21 11:37 Weight - Most Recent: 78.018 kg I&O - Last 24 Hours: Intake & Output 05/09/21 05/10/21 05/10/21 22:59 06:59 14:59 Intake Total 600 860 160 Output Total 1600 1000 Balance -1000 -140 160 Lab Results Last 24 Hours: Laboratory Results - last 24 hr 05/07/21 05/09/21 05/09/21 Range/Units 05:45 16:28 20:49 WBC (4.5-11.0) K/uL RBC (3.30-5.50) M/uL Hgb (12.0-15.0) g/dL Hct (36.0-48.0) % MCV (80-98) fL MCH (27-31) pg MCHC (32-36) % Plt Count (150-400) K/uL Sodium (140-148) mmol/L Potassium (3.6-5.2) mmol/L Chloride (100-108) mmol/L Carbon Dioxide (21-32) mmol/L Anion Gap (5.0-14.0) mmol/L BUN (7-18) mg/dL Creatinine (0.6-1.0) mg/dL Est Cr Clr Drug Dosing mL/min Estimated GFR (MDRD) (>60) Glucose (74-106) mg/dL POC Glucose 135 H 145 H (74-106) mg/dL Calcium (8.5-10.1) mg/dL Phosphorus (2.5-4.9) mg/dL Magnesium (1.8-2.4) mg/dL Total Bilirubin (0.2-1.0) mg/dL AST (15-37) U/L ALT (12-78) U/L Alkaline Phosphatase (46-116) U/L NT-Pro-B Natriuret Pep (5-450) pg/mL Total Protein (6.4-8.2) g/dL Albumin (3.4-5.0) g/dL Globulin (2.3-3.5) g/dL Albumin/Globulin Ratio (1.2-2.2) Blood Type O NEGATIVE Gel Antibody Screen Negative Crossmatch See Detail 05/10/21 05/10/21 05/10/21 Range/Units 05:00 05:00 07:32 WBC 7.5 (4.5-11.0) K/uL RBC 3.67 (3.30-5.50) M/uL Hgb 11.1 L D (12.0-15.0) g/dL Hct 33.8 L (36.0-48.0) % MCV 92 (80-98) fL MCH 30 (27-31) pg MCHC 33 (32-36) % Plt Count 258 (150-400) K/uL Sodium 137 L (140-148) mmol/L Potassium 4.2 (3.6-5.2) mmol/L Chloride 102 (100-108) mmol/L Carbon Dioxide 27 (21-32) mmol/L Anion Gap 12.2 (5.0-14.0) mmol/L BUN 23 H (7-18) mg/dL Creatinine 1.7 H (0.6-1.0) mg/dL Est Cr Clr Drug Dosing 20.58 mL/min Estimated GFR (MDRD) 29 L (>60) Glucose 109 H (74-106) mg/dL POC Glucose 117 H (74-106) mg/dL Calcium 8.7 (8.5-10.1) mg/dL Phosphorus 2.6 (2.5-4.9) mg/dL Magnesium 2.7 H D (1.8-2.4) mg/dL Total Bilirubin 0.2 (0.2-1.0) mg/dL AST 20 (15-37) U/L ALT 18 (12-78) U/L Alkaline Phosphatase 122 H (46-116) U/L NT-Pro-B Natriuret Pep 1246 H (5-450) pg/mL Total Protein 5.8 L (6.4-8.2) g/dL Albumin 2.3 L (3.4-5.0) g/dL Globulin 3.5 (2.3-3.5) g/dL Albumin/Globulin Ratio 0.7 L (1.2-2.2) Blood Type Gel Antibody Screen Crossmatch 05/10/21 Range/Units 11:38 WBC (4.5-11.0) K/uL RBC (3.30-5.50) M/uL Hgb (12.0-15.0) g/dL Hct (36.0-48.0) % MCV (80-98) fL MCH (27-31) pg MCHC (32-36) % Plt Count (150-400) K/uL Sodium (140-148) mmol/L Potassium (3.6-5.2) mmol/L Chloride (100-108) mmol/L Carbon Dioxide (21-32) mmol/L Anion Gap (5.0-14.0) mmol/L BUN (7-18) mg/dL Creatinine (0.6-1.0) mg/dL Est Cr Clr Drug Dosing mL/min Estimated GFR (MDRD) (>60) Glucose (74-106) mg/dL POC Glucose 142 H (74-106) mg/dL Calcium (8.5-10.1) mg/dL Phosphorus (2.5-4.9) mg/dL Magnesium (1.8-2.4) mg/dL Total Bilirubin (0.2-1.0) mg/dL AST (15-37) U/L ALT (12-78) U/L Alkaline Phosphatase (46-116) U/L NT-Pro-B Natriuret Pep (5-450) pg/mL Total Protein (6.4-8.2) g/dL Albumin (3.4-5.0) g/dL Globulin (2.3-3.5) g/dL Albumin/Globulin Ratio (1.2-2.2) Blood Type Gel Antibody Screen Crossmatch Med Orders - Current: Current Medications Acetaminophen (Acetaminophen 325 Mg Tab) 650 mg PO Q6H [facility] Last Admin: 05/10/21 10:02 Dose: 650 mg Documented by: Albuterol/Ipratropium (Albuterol/Ipratropium 3.0-0.5 Mg/3 Ml Neb Soln) 3 ml NEB Q6H PRN PRN Reason: Wheezing Allopurinol (Allopurinol 100 Mg Tab) 100 mg PO DAILY [facility] Last Admin: 05/10/21 08:58 Dose: 100 mg Documented by: Amlodipine Besylate (Amlodipine 5 Mg Tab) 2.5 mg PO DAILY [facility] Last Admin: 05/10/21 08:58 Dose: Not Given Documented by: Benzocaine/Menthol (Benzocaine/Cetylpyridinium/Menthol Lozenge) 1 lozenge MUCMEM Q1H PRN PRN Reason: Sore Throat Bisacodyl (Bisacodyl 5 Mg Tab) 10 mg PO BID [facility] Last Admin: 05/10/21 08:58 Dose: 10 mg Documented by: Dextrose (Glucose Gel 15 Gm In 37.5 Gm Tube) 15 gm PO ONETIME PRN PRN Reason: Hypoglycemia Dextrose/Water (50% Dextrose In Water 50 Ml Syringe) 50 ml IV ONETIME PRN PRN Reason: Hypoglycemia Diphenhydramine HCl (Diphenhydramine 50 Mg/Ml Sdv) 25 mg IVPUSH Q6H PRN PRN Reason: ITCHING Diphenhydramine HCl (Diphenhydramine 50 Mg/Ml Sdv) 50 mg IVPUSH Q6H PRN PRN Reason: ITCHING Docusate Sodium (Docusate Sodium 100 Mg Cap) 100 mg PO BID [facility] Last Admin: 05/10/21 08:58 Dose: 100 mg Documented by: Enoxaparin Sodium (Enoxaparin 30 Mg/0.3 Ml Syringe) 30 mg SUBCUT BEDTIME [facility] Last Admin: 05/08/21 21:45 Dose: 30 mg Documented by: Fentanyl (Fentanyl 100 Mcg/2 Ml Sdv) 25 mcg IVPUSH Q1H PRN PRN Reason: Pain (moderate 4-6) Furosemide (Furosemide 20 Mg/2 Ml Vial) 10 mg IV ASDIRECTED [facility] Last Admin: 05/09/21 16:22 Dose: 10 mg Documented by: Glipizide (Glipizide 5 Mg Tab) 2.5 mg PO ACBREAKFAST [facility] Last Admin: 05/10/21 07:28 Dose: 2.5 mg Documented by: Hydroxyzine HCl (Hydroxyzine Hcl 100 Mg/2 Ml Sdv) 50 mg IM Q4H PRN PRN Reason: Nausea Magnesium Sulfate 2 gm/ Premix 50 mls @ 25 mls/hr IV Q6H [facility] Stop: 05/11/21 05:59 Last Admin: 05/10/21 10:00 Dose: 25 mls/hr Documented by: Insulin Human Lispro (Insulin Lispro 100 Unit/Ml 3 Ml Kwikpen) 0 unit SUBCUT QIDACANDBED [facility]; Protocol Last Admin: 05/10/21 11:48 Dose: Not Given Documented by: Metoclopramide HCl (Metoclopramide 10 Mg/2 Ml Sdv) 10 mg IV Q6H PRN PRN Reason: Nausea Ondansetron HCl (Ondansetron 4 Mg Tab.Dis) 4 mg PO Q6H PRN PRN Reason: Nausea/Vomiting Last Admin: 05/10/21 08:12 Dose: 4 mg Documented by: Oxycodone/Acetaminophen (Acetaminophen/Oxycodone 325-5 Mg Tab) 2 tab PO Q4H PRN PRN Reason: Pain (moderate 4-6) Discontinued Medications Alvimopan (Alvimopan 12 Mg Capsule) 12 mg PO Q12H [facility] Stop: 05/14/21 09:01 Last Admin: 05/10/21 08:58 Dose: 12 mg Documented by: Dexamethasone (Dexamethasone 4 Mg/Ml Sdv) Confirm Administered Dose 4 mg .ROUTE .STK-MED ONE Stop: 05/07/21 07:20 Enoxaparin Sodium (Enoxaparin 40 Mg/0.4 Ml Syringe) 40 mg SUBCUT BEDTIME [facility] Last Admin: 05/07/21 21:14 Dose: 40 mg Documented by: Ephedrine Sulfate (Ephedrine 50 Mg/Ml Sdv) Confirm Administered Dose 50 mg .ROUTE .STK-MED ONE Stop: 05/07/21 08:23 Ephedrine Sulfate (Ephedrine 50 Mg/Ml Sdv) Confirm Administered Dose 50 mg .ROUTE .STK-MED ONE Stop: 05/07/21 08:45 Ephedrine Sulfate (Ephedrine 50 Mg/Ml Sdv) 5 - 10 mg IV ASDIRECTED PRN PRN Reason: SYSTOLIC BP LESS THAN 100 Fentanyl (Fentanyl 250 Mcg/5 Ml Sdv) Confirm Administered Dose 250 mcg .ROUTE .STK-MED ONE Stop: 05/07/21 07:20 Furosemide (Furosemide 20 Mg/2 Ml Vial) 10 mg IV ONETIME ONE Stop: 05/09/21 08:46 Last Admin: 05/09/21 08:46 Dose: 10 mg Documented by: Glipizide (Glipizide 5 Mg Tab) 2.5 mg PO DAILY [facility] Glycopyrrolate (Glycopyrrolate 0.2 Mg/Ml 5 Ml Mdv) Confirm Administered Dose 1 mg .ROUTE .STK-MED ONE Stop: 05/07/21 07:20 Sodium Chloride (Normal Saline) 1,000 mls @ 75 mls/hr IV ASDIRECTED [facility] Last Admin: 05/07/21 07:03 Dose: 75 mls/hr Documented by: Cefazolin Sodium/Dextrose 2 gm (/ Premix) 50 mls @ 100 mls/hr IV ONETIME ONE Stop: 05/07/21 07:59 Last Admin: 05/07/21 07:26 Dose: 100 mls/hr Documented by: Metronidazole 500 mg/ Premix 100 mls @ 100 mls/hr IV ONETIME ONE Stop: 05/07/21 08:29 Last Admin: 05/07/21 07:26 Dose: 100 mls/hr Documented by: Fentanyl 2,500 mcg/ Sodium (Chloride) 250 mls @ 0 mls/hr EPIDUR TITRATE [facility]; Protocol Last Admin: 05/09/21 19:34 Dose: 12 mls/hr, 12 mls/hr Documented by: Sodium Chloride (Normal Saline) Confirm Administered Dose 10 mls @ as directed .ROUTE .STK-MED ONE Stop: 05/07/21 07:23 Sodium Chloride (Normal Saline) Confirm Administered Dose 10 mls @ as directed .ROUTE .STK-MED ONE Stop: 05/07/21 08:23 Sodium Chloride (Normal Saline) Confirm Administered Dose 10 mls @ as directed .ROUTE .STK-MED ONE Stop: 05/07/21 08:46 Lactated Ringer's (Ringers, Lactated) Confirm Administered Dose 1,000 mls @ as directed .ROUTE .STK-MED ONE Stop: 05/07/21 08:52 Naloxone HCl 0.4 mg/ Sodium (Chloride) 1,001 mls @ 75 mls/hr IV .[id number] [facility] Stop: 05/07/21 20:59 Last Admin: 05/07/21 11:43 Dose: 75 mls/hr Documented by: Cefazolin Sodium/Dextrose 1 gm (/ Premix) 50 mls @ 100 mls/hr IV Q8H [facility] Stop: 05/08/21 00:29 Last Admin: 05/07/21 23:20 Dose: 100 mls/hr Documented by: Naloxone HCl 0.4 mg/ Sodium (Chloride) 1,001 mls @ 125 mls/hr IV .Q8H1M [facility] Stop: 05/08/21 12:55 Last Admin: 05/08/21 07:49 Dose: 125 mls/hr Documented by: Sodium Chloride (Normal Saline) 250 mls @ 500 mls/hr IV ONETIME ONE Stop: 05/07/21 20:43 Last Admin: 05/07/21 20:23 Dose: 500 mls/hr Documented by: Sodium Chloride (Normal Saline) 250 mls @ 500 mls/hr IV ONETIME ONE Stop: 05/08/21 01:50 Last Admin: 05/08/21 01:28 Dose: 500 mls/hr Documented by: Naloxone HCl 0.4 mg/ Lactated (Ringer's) 1,001 mls @ 100 mls/hr IV .Q10H1M [facility] Stop: 05/09/21 09:55 Last Infusion: 05/09/21 09:34 Dose: 25 mls/hr Documented by: Naloxone HCl 0.4 mg/ Lactated (Ringer's) 1,001 mls @ 25 mls/hr IV .Q24H [facility] Last Admin: 05/10/21 09:53 Dose: Not Given Documented by: Ketorolac Tromethamine (Ketorolac 30 Mg/Ml Sdv) 30 mg IVPUSH Q6H [facility] Stop: 05/08/21 08:01 Last Admin: 05/07/21 14:16 Dose: 30 mg Documented by: Ketorolac Tromethamine (Ketorolac 30 Mg/Ml Sdv) 15 mg IVPUSH Q6H [facility] Stop: 05/08/21 08:01 Last Admin: 05/08/21 08:40 Dose: Not Given Documented by: Naloxone HCl (Naloxone 0.4 Mg/Ml Sdv) 0.1 mg IVPUSH Q5M PRN PRN Reason: RESP RATE LESS THAN 6/MINUTE Naloxone HCl (Naloxone 0.4 Mg/Ml Sdv) 0.4 mg IV ASDIRECTED PRN PRN Reason: ITCHING Neostigmine Methylsulfate (Neostigmine Methylsulfate 1 Mg/Ml 5 Ml Syringe) Confirm Administered Dose 5 mg .ROUTE .STK-MED ONE Stop: 05/07/21 07:20 Ondansetron HCl (Ondansetron 4 Mg/2 Ml Sdv) Confirm Administered Dose 4 mg .ROUTE .STK-MED ONE Stop: 05/07/21 07:20 Ondansetron HCl (Ondansetron 4 Mg/2 Ml Sdv) Confirm Administered Dose 4 mg .ROUTE .STK-MED ONE Stop: 05/07/21 10:31 Last Admin: 05/07/21 10:38 Dose: Not Given Documented by: Phenylephrine HCl (Phenylephrine 1% 10 Mg/Ml Sdv) Confirm Administered Dose 10 mg .ROUTE .STK-MED ONE Stop: 05/07/21 08:46 Propofol (Propofol 200 Mg/20 Ml Sdv) Confirm Administered Dose 200 mg .ROUTE .STK-MED ONE Stop: 05/07/21 07:20 Rocuronium Chapman (Rocuronium 50 Mg/5 Ml Vial) Confirm Administered Dose 50 mg .ROUTE .STK-MED ONE Stop: 05/07/21 07:20 Succinylcholine Chloride (Succinylcholine 200 Mg/10 Ml Mdv) Confirm Administered Dose 200 mg .ROUTE .STK-MED ONE Stop: 05/07/21 07:20 - Exam Quality Assessment: No: Supplemental Oxygen Urinary Catheter Total Time: 3Days 3Hours General: Alert, Oriented, Cooperative, No Acute Distress Lungs: Normal Respiratory Effort Cardiovascular: Regular Rate, Regular Rhythm GI/Abdominal Exam: Soft, No Distention Extremities: No Pedal Edema Skin: Warm, Dry Psy/Mental Status: Alert, Normal Affect Sepsis Event Note - Evaluation Sepsis Screening Result: No Definite Risk - Focused Exam Vital Signs: Vital Signs Temp Pulse Resp BP BP Pulse Ox 05/10/21 11:37 36.8 C 89 18 150/66 H 91 L 05/10/21 08:44 92 L 05/10/21 08:13 150/67 H 05/10/21 07:29 187/70 H 05/10/21 07:19 187/70 H 05/10/21 07:00 36.8 C 83 18 201/97 H 96 05/10/21 02:38 72 16 97 05/10/21 01:46 95 Consult PN Assessment/Plan Procedures: Procedures BREAST TOMOSYNTHESIS BI (07/15/20) COLONOSCOPY AND BIOPSY (03/23/21) COLONOSCOPY SUBMUCOUS NJX (03/23/21) COLONOSCOPY W/LESION REMOVAL (11/23/20) COMP SCREEN MAMMOGRAM ADD-ON (07/16/15) EMERGENCY DEPT VISIT (12/05/20) EMERGENCY DEPT VISIT (02/10/19) EXTREMITY STUDY (02/10/19) SCR MAMMO BI INCL CAD (07/15/20) THER/PROPH/DIAG IV INF INIT (12/05/20) TISSUE EXAM BY PATHOLOGIST (03/23/21) US EXAM ABDO BACK WALL [place] (07/07/15) X-RAY EXAM OF ANKLE (02/10/19) X-RAY EXAM OF FOOT (02/10/19) X-RAY EXAM OF KNEE 1 OR 2 (12/05/20) Problem List Initiated/Reviewed/Updated: Yes Plan: ASSESSMENT AND RECOMMENDATIONS - STATUS POST HEMICOLECTOMY FOR COLON CANCER-stable and doing well. She is hoping to go home tomorrow. -Postoperative care per Dr. Quevedo and Dr. Orlando TYPE 2 DIABETES MELLITUS-blood sugars have been well controlled. -Hold oral hypo-glycemic therapy -4 times daily glucometers -Moderate dose sliding scale insulin HYPERTENSION-moderate elevation of blood pressure today. Blood pressures have been good during the early part of the hospital stay so I am reluctant to increase her antihypertensive. -Continue outpatient medications CHRONIC KIDNEY DISEASE STAGE IV-renal function stable thus far with adequate urine output -Closely monitor urine output and renal function -Optimize volume status Ken Barron MD
[2021-05-10] MEDS: Calcium Carbonate 500 MG Tab.Chew PO PRN ×2 (15:39→18:16)
[2021-05-10] MEDS: Enoxaparin 30 MG/0.3 ML Syringe SUBCUT SCH (21:44)
[2021-05-10] MEDS ORDERED: Dimethicone 20%/Zinc Oxide 25% 56 GM Spray Bottle TOP PRN (23:54)
[2021-05-11] MEDS: Acetaminophen 325 MG Tab PO SCH ×2 (04:37→09:50)
[2021-05-11] MEDS: Insulin Lispro 100 Unit/ML 3 ML KwikPen SUBCUT SCH (08:25)
[2021-05-11] MEDS: Bisacodyl 5 MG Tab PO SCH (08:26)
[2021-05-11] MEDS: Docusate Sodium 100 MG Cap PO SCH (08:26)
[2021-05-11] MEDS: glipiZIDE 5 MG Tab PO SCH (08:27)
[2021-05-11] MEDS: Allopurinol 100 MG Tab PO SCH (08:28)
[2021-05-11] MEDS: amLODIPine 5 MG Tab PO SCH (08:33)
--- NOTE | 2021-05-11 08:40 | PN ---
DATE OF SERVICE: 05/11/2021 SUBJECTIVE: Patient is doing well. Pain is well controlled. No nausea, vomiting, shortness of breath or chest pain. OBJECTIVE: VITAL SIGNS: Stable. Afebrile per nursing report. CARDIOVASCULAR: Regular rate and rhythm. RESPIRATORY: Lungs clear to auscultation bilaterally. SKIN: Incisions healing well. No drainage. ASSESSMENT: Status post right hemicolectomy. PLAN: The patient will be discharged today. Please see discharge summary for further details. Jos Quevedo MD /[id number]
[2021-05-11] MEDS: Calcium Carbonate 500 MG Tab.Chew PO PRN (10:12)
--- NOTE | 2021-05-11 13:01 | DISCH ---
DISCHARGE DIAGNOSIS: Status post right hemicolectomy. SUMMARY OF HOSPITAL COURSE: Pleasant 80-year-old female who underwent a right hemicolectomy, and the patient did well postoperatively. She had epidural pain, which we controlled it, and at the time of discharge, her pain is well controlled with Tylenol only. No nausea, vomiting, shortness of breath, or chest pain. She is having bowel movements. No difficulty. No fevers or chills. Consultations during this hospitalization with Hospitalist Service to assist with renal function. /[id number]
== END 2021-05-11 12:00 | disposition home or self-care (01) | DRG 330 ==
LOC: JP.SDSSCHI 05:31 → JP.SDS 05:31 → JP.ICU 10:47 → EDSTATUS 15:30 → JP.MS 05-08 20:16
PROVIDERS: ADMIT Surgery; ATTEND Surgery
PROC: 0DTF0ZZ Resection of Right Large Intestine, Open Approach (ICD-10-PCS; principal; 2021-05-07)
DX: C18.4 Malignant neoplasm of transverse colon (principal); N18.4 Chronic kidney disease, stage 4 (severe); E11.22 Type 2 diabetes mellitus with diabetic chronic kidney disease; I12.9 Hypertensive chronic kidney disease with stage 1 through stage 4 chronic kidney disease, or unspecified chronic kidney disease; M10.9 Gout, unspecified; H91.90 Unspecified hearing loss, unspecified ear; H54.7 Unspecified visual loss; E78.00 Pure hypercholesterolemia, unspecified; M19.90 Unspecified osteoarthritis, unspecified site; Z86.010 Personal history of colon polyps; Z90.710 Acquired absence of both cervix and uterus; Z79.84 Long term (current) use of oral hypoglycemic drugs; Z88.8 Allergy status to other drugs, medicaments and biological substances; Z79.899 Other long term (current) drug therapy; Z98.49 Cataract extraction status, unspecified eye
CPT/HCPCS: 36415; 36430; 80048; 80053; 82947; 83735; 83880; 84100; 85025; 85027; 86850; 86900; 86901; 86920; 86922; 94762; A9270-GY; J0330; J0690; J1100; J1650; J1815; J1885; J1940; J2310; J2370; J2405; J2704; J2710; J3010; J3475; J3490; J7030; J7050; J7120; P9016

== ENCOUNTER → 2022-04-11 | Day surgery (SDC) | payer MEDICARE ==
[~2022-04-11] MED LIST: Acetaminophen 500 MG Tab PO ONE; Bupivacaine 0.5% 50 ML MDV ONE; Dexamethasone 4 MG/ML SDV ONE; Glycopyrrolate 0.2 MG/ML 5 ML MDV ONE; Indocyanine Green 25 MG SDV INJECT ONE; Isosulfan Blue 5 ML SDV ONE; Lidocaine 1% 20 ML MDV INJECT ONE; Lidocaine 1% 50 ML MDV INJECT ONE; Lidocaine 1% with EPINEPHrine 1:100,000 50 ML MDV ONE; Neostigmine Methylsulfate 1 MG/ML 5 ML Syringe ONE; Ondansetron 4 MG/2 ML SDV ONE; Propofol 200 MG/20 ML SDV ONE; Rocuronium 50 MG/5 ML Vial ONE; Succinylcholine 200 MG/10 ML MDV ONE; ceFAZolin 2 GM in Sodium Chloride 0.9% 50 ML IV ONE; ceFAZolin/Dextrose,Iso-Osmotic 2 GM/50 ML Duplex Bag (Premix) IV ONE; ePHEDrine 50 MG/ML SDV ONE; fentaNYL 250 MCG/5 ML SDV ONE
[2022-05-06 08:47] LABS: ESTIMATED GFR 28 mL/min (>60)
== END ==
LOC: JP.SDS 06:00
PROVIDERS: ATTEND Surgery
DX: C50.211 Malignant neoplasm of upper-inner quadrant of right female breast (principal); C18.2 Malignant neoplasm of ascending colon; I12.9 Hypertensive chronic kidney disease with stage 1 through stage 4 chronic kidney disease, or unspecified chronic kidney disease; N18.4 Chronic kidney disease, stage 4 (severe); E11.22 Type 2 diabetes mellitus with diabetic chronic kidney disease; E66.9 Obesity, unspecified; Z98.890 Other specified postprocedural states; Z90.710 Acquired absence of both cervix and uterus; Z79.899 Other long term (current) drug therapy; Z88.8 Allergy status to other drugs, medicaments and biological substances; Z17.0 Estrogen receptor positive status [ER+]; Z88.5 Allergy status to narcotic agent; Z68.33 Body mass index [BMI] 33.0-33.9, adult
CPT/HCPCS: 19281; 19302; 36415; 38900; 77065; 80053; 82947; 83735; 84100; 85027; 88307; 88341; 88342; 93005; J0330; J0690; J2405; J2704; J2710; J3010; J3490; J1100; Q9968

== ENCOUNTER 2022-05-23 08:36 | Day surgery (SDC) | payer MEDICARE ==
[~2022-05-23 08:36] MED LIST changes: -Acetaminophen 500 MG Tab PO ONE; -Bupivacaine 0.5% 50 ML MDV ONE; -Dexamethasone 4 MG/ML SDV ONE; -Glycopyrrolate 0.2 MG/ML 5 ML MDV ONE; -Indocyanine Green 25 MG SDV INJECT ONE; -Isosulfan Blue 5 ML SDV ONE; -Lidocaine 1% 20 ML MDV INJECT ONE; -Lidocaine 1% 50 ML MDV INJECT ONE; -Lidocaine 1% with EPINEPHrine 1:100,000 50 ML MDV ONE; -Neostigmine Methylsulfate 1 MG/ML 5 ML Syringe ONE; -Ondansetron 4 MG/2 ML SDV ONE; -Rocuronium 50 MG/5 ML Vial ONE; -Succinylcholine 200 MG/10 ML MDV ONE; -ceFAZolin 2 GM in Sodium Chloride 0.9% 50 ML IV ONE; -ceFAZolin/Dextrose,Iso-Osmotic 2 GM/50 ML Duplex Bag (Premix) IV ONE; -ePHEDrine 50 MG/ML SDV ONE; -fentaNYL 250 MCG/5 ML SDV ONE; +fentaNYL 50 MCG/ML SDV ONE
[2022-05-23] MEDS ORDERED: Lactated Ringers 1,000 ML IV SCH (09:15)
== END 2022-05-23 13:13 | disposition home or self-care (01) ==
LOC: JP.SDS 08:36
PROVIDERS: ATTEND Student in an Organized Health Care Education/Training Program
DX: Z12.11 Encounter for screening for malignant neoplasm of colon (principal); D12.3 Benign neoplasm of transverse colon; I10 Essential (primary) hypertension; Z80.0 Family history of malignant neoplasm of digestive organs; Z85.9 Personal history of malignant neoplasm, unspecified; Z88.6 Allergy status to analgesic agent; Z88.8 Allergy status to other drugs, medicaments and biological substances
CPT/HCPCS: 45385; 88305; J2704; J3010; J7120

== ENCOUNTER 2024-06-21 06:38 | Emergency (ER) | payer MEDICARE ==
[2024-06-21 07:49] LABS: BASOPHILS PERCENT AUTO 0.1 % (0.1-1.3); EOSINOPHILS ABSOLUTE AUTO 0.24 K/uL (0.00-0.40); EOSINOPHILS PERCENT AUTO 3.2 % (0.0-5.4); HEMATOCRIT 32.1 % (34.3-46.0); HEMOGLOBIN 10.7 g/dL (11.2-15.5); IMMATURE GRAN PERCENT AUTO 0.3 % (0.0-0.7); LYMPHOCYTES ABSOLUTE AUTO 1.03 K/uL (0.8-3.3); LYMPHOCYTES PERCENT AUTO 13.6 % (11.4-47.7); MEAN CORPUSCULAR HEMOGLOBIN 30.7 pg (31.6-35.5); MEAN CORPUSCULAR HGB CONC 33.3 g/dL (31.6-35.5); MEAN CORPUSCULAR VOLUME 92.2 fL (81.4-99.0); MONOCYTES ABSOLUTE AUTO 0.55 K/uL (0.20-0.90); MONOCYTES PERCENT AUTO 7.2 % (3.3-12.6); NEUTROPHILS ABSOLUTE AUTO 5.74 K/uL (1.0-7.6); NEUTROPHILS PERCENT AUTO 75.6 % (40.0-78.1); PLATELET COUNT,PLT 315 K/uL (130-375); RED BLOOD CELL COUNT 3.48 M/uL (3.77-5.24); WHITE BLOOD CELL COUNT,WBC 7.6 K/uL (3.2-11.0)
[2024-06-21] MEDS: Losartan 25 MG Tab PO STA (07:50)
[2024-06-21 07:53] LABS: BASOPHILS ABSOLUTE AUTO 0.01 K/uL (0.00-0.10); IMMATURE GRAN ABSOLUTE AUTO 0.02 K/uL (0.00-0.23)
[2024-06-21 08:13] LABS: ALANINE AMINOTRANSFERASE,ALT 26 U/L (12-78); ALBUMIN 3.3 g/dL (3.4-5.0); ALKALINE PHOSPHATASE 110 U/L (46-116); ASPARTATE AMNIOTRANSFERASE,AST 18 U/L (15-37); BILIRUBIN TOTAL 0.4 mg/dL (0.2-1.0); BLOOD UREA NITROGEN,BUN 46 mg/dL (7-18); CALCIUM 9.6 mg/dL (8.5-10.1); CARBON DIOXIDE,CO2 25 mmol/L (21-32); CHLORIDE,CL 101 mmol/L (100-108); CREATININE 2.3 mg/dL (0.6-1.0); EST CRCL DRUG DOSING (CG) 13.54 mL/min; ESTIMATED GFR 21 mL/min (>60); GLUCOSE RANDOM 146 mg/dL (74-106); POTASSIUM,K 3.7 mmol/L (3.6-5.2); PROTEIN TOTAL,TP 7.2 g/dL (6.4-8.2); SODIUM,NA 138 mmol/L (140-148); TROPONIN I HIGH SENSITIVITY 16.7 pg/mL (<=60.3)
[2024-06-21 08:14] LABS: A/G RATIO 0.9 (1.2-2.2); ANION GAP 15.7 mmol/L (5.0-14.0)
[2024-06-21] MEDS: Acetaminophen 500 MG Tab PO ONE (09:53)
[2024-06-21 10:30] LABS: APPEARANCE,URINE CLEAR (CLEAR); BILIRUBIN,URINE NEGATIVE (NEGATIVE); COLOR,URINE YELLOW (YELLOW); GLUCOSE,URINE NEGATIVE (NEGATIVE); KETONES,URINE NEGATIVE (NEGATIVE); LEUKOCYTE ESTERASE,URINE NEGATIVE (NEGATIVE); NITRITE,URINE NEGATIVE (NEGATIVE); OCCULT BLOOD,URINE NEGATIVE (NEGATIVE); PROTEIN,URINE 30 mg/dL (NEGATIVE); UROBILINOGEN,URINE 0.2 EU/dL (0.2-1.0)
[2024-06-21 10:37] LABS: AMORPHOUS SEDIMENT,URINE NOT SEEN; BACTERIA,URINE NOT SEEN; EPITHELIAL CELLS,URINE NOT SEEN; MUCUS,URINE NOT SEEN; RBC,URINE 0-5 (0-5); WBC,URINE 0-5 (0-5)
[2024-06-21] MEDS: fentaNYL 100 MCG/2 ML SDV IM ONE (11:36)
== END 2024-06-21 12:27 | disposition home or self-care (01) ==
LOC: JP.ED 06:38
DX: R53.1 Weakness (principal); I12.9 Hypertensive chronic kidney disease with stage 1 through stage 4 chronic kidney disease, or unspecified chronic kidney disease; N18.9 Chronic kidney disease, unspecified; E11.9 Type 2 diabetes mellitus without complications; E66.9 Obesity, unspecified; Z90.49 Acquired absence of other specified parts of digestive tract; Z90.710 Acquired absence of both cervix and uterus; Z88.5 Allergy status to narcotic agent; Z88.8 Allergy status to other drugs, medicaments and biological substances; Z79.899 Other long term (current) drug therapy; Z68.33 Body mass index [BMI] 33.0-33.9, adult
CPT/HCPCS: 36415; 80053; 81001; 83605; 84484; 85025; 93005; 96372; 99285; A9270; J3010

== ENCOUNTER 2024-08-02 07:02 | Day surgery (SDC) | payer MEDICARE ==
[2024-08-02] MEDS ORDERED: Propofol 200 MG/20 ML SDV ONE ×2 (07:14→10:14)
[2024-08-02] MEDS: Lactated Ringers 1,000 ML IV SCH (07:42)
== END 2024-08-02 12:00 | disposition home or self-care (01) ==
LOC: JP.SDS 07:02
PROVIDERS: ATTEND Family Medicine
DX: Z12.11 Encounter for screening for malignant neoplasm of colon (principal); D12.3 Benign neoplasm of transverse colon; D12.8 Benign neoplasm of rectum; K57.30 Diverticulosis of large intestine without perforation or abscess without bleeding; E11.22 Type 2 diabetes mellitus with diabetic chronic kidney disease; I12.9 Hypertensive chronic kidney disease with stage 1 through stage 4 chronic kidney disease, or unspecified chronic kidney disease; N18.4 Chronic kidney disease, stage 4 (severe); Z79.84 Long term (current) use of oral hypoglycemic drugs; Z79.899 Other long term (current) drug therapy; Z85.038 Personal history of other malignant neoplasm of large intestine
CPT/HCPCS: 00811; 45380; 45381; 45385; 88305; J2704; J7120